=== PATIENT | male | born 1970 | race Two or more races ===

== ENCOUNTER 2020-01-13 15:15 | Outpatient (REF) | payer MEDICAID, SELFPAY ==
[2020-01-13 17:11] LABS: Anion Gap 14 (12-20); Blood Urea Nitrogen 19 mg/dL (9-16); Calcium 8.9 mg/dL (8.4-10.2); Carbon Dioxide 24 mmol/L (22-29); Chloride 107 mmol/L (96-108); Estimated Glomerular Filt Rate > 60; Glucose Random 90 mg/dL (60-115); Potassium 3.8 mmol/l (3.3-5.1); Sodium 141 mmol/L (135-145)
[2020-01-14 07:16] LABS: LDL Cholesterol Direct 111 mg/dL (<100)
== END 2020-01-13 15:16 | disposition home or self-care (01) ==
LOC: HO.HMGCLDS 15:15
PROVIDERS: PCP Internal Medicine; Visit Provider Internal Medicine
DX: E78.9 Disorder of lipoprotein metabolism, unspecified (principal); F41.1 Generalized anxiety disorder; M54.16 Radiculopathy, lumbar region; Z72.0 Tobacco use
CPT/HCPCS: 80048; 83721

== ENCOUNTER 2020-06-11 15:46 | Outpatient (REF) | payer OTHER, SELFPAY ==
--- NOTE | ~2020-06-11 | XR_ITS ---
EXAMINATION: XR ELBOW, LEFT CLINICAL INFORMATION: Pain left elbow COMPARISON: None TECHNIQUE: AP, lateral, and oblique views of the left elbow. FINDINGS: There is no fracture, dislocation, or elbow capsular effusion. Normal bony mineralization. No destructive process or periostitis. No joint narrowing or erosive change. No epicondylar or olecranon spurring. XR/XR elbow LT min 3V IMPRESSION: Normal left elbow.
== END 2020-06-11 15:47 | disposition home or self-care (01) ==
LOC: HO.HMGCX 15:46
PROVIDERS: PCP Internal Medicine; Visit Provider Nurse Practitioner Family
DX: M25.522 Pain in left elbow (principal)
CPT/HCPCS: 73080

== ENCOUNTER → 2020-07-20 09:21 | Outpatient (BNVA) | payer OTHER, SELFPAY | PROVIDERS: PCP Internal Medicine; Visit Provider Orthopaedic Surgery | DX: M70.22 Olecranon bursitis, left elbow (principal); M77.12 Lateral epicondylitis, left elbow; M75.42 Impingement syndrome of left shoulder; E78.5 Hyperlipidemia, unspecified; Z91.81 History of falling; Z88.6 Allergy status to analgesic agent; Z88.0 Allergy status to penicillin; Z88.8 Allergy status to other drugs, medicaments and biological substances; Z91.09 Other allergy status, other than to drugs and biological substances | CPT/HCPCS: 99202 ==

== ENCOUNTER 2020-08-28 12:01 | Outpatient (REF) | payer OTHER, SELFPAY ==
[2020-08-28 14:00] LABS: MANUAL DIFF FLAG NO
[2020-08-28 14:15] LABS: Basophils Absolute Auto 0.1 X10*3/uL (0.0-0.2); Basophils Percent Auto 1.3 % (0-2); Eosinophils Absolute Auto 0.2 X10*3/uL (0.0-0.4); Eosinophils Percent Auto 2.8 % (0-4); Hematocrit 45.2 % (42-52); Hemoglobin 15.1 g/dl (14.0-18.0); Imm Gran Abs Auto 0.02 X10*3/uL (0.00-0.03); Imm Gran Pct Auto 0.2 % (0.0-0.4); Lymphocytes Absolute Auto 3.6 X10*3/uL (1.2-4.9); Lymphocytes Percent Auto 42.3 % (20-40); Mean Corpuscular HGB Conc 33.4 g/dl (31.0-36.0); Mean Corpuscular Hemoglobin 29.8 pg (27.0-33.0); Mean Corpuscular Volume 89.2 fL (80-98); Mean Platelet Volume 10.8 fL (9.4-12.4); Monocytes Absolute Auto 0.8 X10*3/uL (0.1-1.2); Monocytes Percent Auto 9.4 % (2-11); Neutrophils Absolute Auto 3.7 X10*3/uL (2.0-8.3); Platelet Count 290 X10*3/uL (160-400); Red Blood Count 5.07 X10*6/uL (4.60-5.80); White Blood Count 8.5 X10*3/uL (4.8-10.8)
[2020-08-28 14:40] LABS: Alanine Aminotransferase 27 U/L (0-40); Albumin Level 4.5 g/dL (3.5-5.0); Alkaline Phosphatase 113 U/L (39-117); Anion Gap 12 (12-20); Aspartate Amino Transferase 21 U/L (5-37); Bilirubin Total 0.5 mg/dL (0.0-1.0); Blood Urea Nitrogen 15 mg/dL (9-16); Carbon Dioxide 27 mmol/L (22-29); Chloride 107 mmol/L (96-108); Cholesterol 158 mg/dL; Estimated Glomerular Filt Rate > 60; Glucose Fasting 92 mg/dL (60-99); HDL Cholesterol 32 mg/dL; LDL Cholesterol Calculated 83 mg/dl; Potassium 4.5 mmol/L (3.3-5.1); Sodium 141 mmol/L (135-145); Triglycerides 217 mg/dL
[2020-08-29 14:12] LABS: LDL Cholesterol Direct 92 mg/dL (<100)
== END 2020-08-28 12:02 | disposition home or self-care (01) ==
LOC: HO.HMGCLDS 12:01
PROVIDERS: PCP Internal Medicine; Visit Provider Internal Medicine
DX: Z00.01 Encounter for general adult medical examination with abnormal findings (principal); E78.9 Disorder of lipoprotein metabolism, unspecified; M54.16 Radiculopathy, lumbar region; F41.1 Generalized anxiety disorder; Z91.09 Other allergy status, other than to drugs and biological substances; Z72.0 Tobacco use
CPT/HCPCS: 36415; 80053; 80061; 83721; 85025

== ENCOUNTER → 2020-10-03 09:01 | Outpatient (BNVA) | payer OTHER, SELFPAY | PROVIDERS: PCP Internal Medicine; Referring Provider Internal Medicine; Visit Provider Surgery | DX: R10.32 Left lower quadrant pain (principal) | CPT/HCPCS: 99202 ==

== ENCOUNTER 2021-02-25 18:28 | Outpatient (REF) | payer OTHER, SELFPAY ==
[2021-02-25 19:29] LABS: Influenza A PCR NEGATIVE (Negative); Influenza B PCR NEGATIVE (Negative); Resp Syncy Virus RNA Qual PCR NEGATIVE (Negative); SARS COV2 PCR INHOUSE POSITIVE (Negative)
== END 2021-02-25 18:29 | disposition home or self-care (01) ==
LOC: HO.LNP 18:28
PROVIDERS: Visit Provider Physician Assistant
DX: J02.9 Acute pharyngitis, unspecified (principal); B34.9 Viral infection, unspecified; Z20.822 Contact with and (suspected) exposure to COVID-19
CPT/HCPCS: 0241U

== ENCOUNTER 2021-03-11 09:04 | Outpatient (REF) | payer OTHER, SELFPAY ==
[2021-03-11 09:18] LABS: MANUAL DIFF FLAG NO
[2021-03-11 09:24] LABS: Basophils Absolute Auto 0.1 X10*3/uL (0.0-0.2); Basophils Percent Auto 0.7 % (0-2); Eosinophils Absolute Auto 0.2 X10*3/uL (0.0-0.4); Eosinophils Percent Auto 2.3 % (0-4); Hematocrit 42.4 % (42.0-52.0); Hemoglobin 14.3 g/dl (14.0-18.0); Imm Gran Abs Auto 0.03 X10*3/uL (0.00-0.03); Imm Gran Pct Auto 0.3 % (0.0-0.4); Lymphocytes Absolute Auto 3.9 X10*3/uL (1.2-4.9); Lymphocytes Percent Auto 42.5 % (20-40); Mean Corpuscular HGB Conc 33.7 g/dl (31.0-36.0); Mean Corpuscular Volume 89.1 fL (80.0-98.0); Mean Platelet Volume 9.6 fL (9.4-12.4); Monocytes Absolute Auto 0.9 X10*3/uL (0.1-1.2); Monocytes Percent Auto 9.7 % (2-11); Neutrophils Percent Auto 44.5 % (45-73); Platelet Count 318 X10*3/uL (160-400); Red Blood Count 4.76 X10*6/uL (4.60-5.80); Red Cell Distribution Width 12.5 % (11.0-16.0); White Blood Count 9.1 X10*3/uL (4.8-10.8)
[2021-03-11 10:14] LABS: Alanine Aminotransferase 28 U/L (0-40); Albumin Level 4.2 g/dL (3.5-5.0); Alkaline Phosphatase 108 U/L (39-117); Anion Gap 12 (12-20); Aspartate Amino Transferase 18 U/L (5-37); Bilirubin Total 0.6 mg/dL (0.0-1.0); Blood Urea Nitrogen 16 mg/dL (9-16); Calcium 9.5 mg/dL (8.4-10.2); Carbon Dioxide 27 mmol/L (22-29); Chloride 108 mmol/L (96-108); Cholesterol 144 mg/dL; Estimated Glomerular Filt Rate > 60; Glucose Fasting 90 mg/dL (60-99); HDL Cholesterol 27 mg/dL; LDL Cholesterol Calculated 86 mg/dl; Potassium 4.6 mmol/L (3.3-5.1); Sodium 142 mmol/L (135-145); Total Protein 6.8 g/dL (6.5-8.0); Triglycerides 155 mg/dL
== END 2021-03-11 09:05 | disposition home or self-care (01) ==
LOC: HO.LAB 09:04
PROVIDERS: PCP Internal Medicine; Visit Provider Internal Medicine
DX: F41.1 Generalized anxiety disorder (principal); E78.9 Disorder of lipoprotein metabolism, unspecified; M54.16 Radiculopathy, lumbar region; Z72.0 Tobacco use; Z91.09 Other allergy status, other than to drugs and biological substances
CPT/HCPCS: 36415; 80053; 80061; 85025

== ENCOUNTER 2021-08-30 09:29 | Outpatient (REF) | payer OTHER, SELFPAY ==
[2021-08-30 12:00] LABS: MANUAL DIFF FLAG NO
[2021-08-30 12:06] LABS: Basophils Absolute Auto 0.1 X10*3/uL (0.0-0.2); Basophils Percent Auto 1.1 % (0-2); Eosinophils Absolute Auto 0.2 X10*3/uL (0.0-0.4); Hemoglobin 14.4 g/dl (14.0-18.0); Imm Gran Abs Auto 0.02 X10*3/uL (0.00-0.03); Imm Gran Pct Auto 0.3 % (0.0-0.4); Lymphocytes Absolute Auto 4.4 X10*3/uL (1.2-4.9); Lymphocytes Percent Auto 55.5 % (20-40); Mean Corpuscular HGB Conc 33.5 g/dl (31.0-36.0); Mean Corpuscular Volume 89.6 fL (80.0-98.0); Mean Platelet Volume 10.9 fL (9.4-12.4); Monocytes Absolute Auto 0.7 X10*3/uL (0.1-1.2); Monocytes Percent Auto 8.1 % (2-11); Neutrophils Absolute Auto 2.6 x10*3/uL (2.0-8.3); Platelet Count 253 X10*3/uL (160-400); Red Cell Distribution Width 12.8 % (11.0-16.0)
[2021-08-30 12:46] LABS: Alanine Aminotransferase 28 U/L (0-40); Albumin Level 4.5 g/dL (3.5-5.0); Alkaline Phosphatase 123 U/L (39-117); Anion Gap 12 (12-20); Aspartate Amino Transferase 18 U/L (5-37); Blood Urea Nitrogen 18 mg/dL (9-16); Calcium 9.5 mg/dL (8.4-10.2); Carbon Dioxide 25 mmol/L (22-29); Chloride 108 mmol/L (96-108); Estimated Glomerular Filt Rate > 60; Glucose Random 90 mg/dL (60-115); Potassium 4.4 mmol/L (3.3-5.1); Sodium 141 mmol/L (135-145)
[2021-08-30 13:56] LABS: Bilirubin Total 0.3 mg/dL (0.0-1.0)
[2021-09-01 02:42] LABS: LDL Cholesterol Direct 92 mg/dL (<100)
== END 2021-08-30 09:30 | disposition home or self-care (01) ==
LOC: HO.HMGCLDS 09:29
PROVIDERS: PCP Internal Medicine; Visit Provider Internal Medicine
DX: Z00.01 Encounter for general adult medical examination with abnormal findings (principal); E78.9 Disorder of lipoprotein metabolism, unspecified; F41.1 Generalized anxiety disorder; K21.9 Gastro-esophageal reflux disease without esophagitis; M54.16 Radiculopathy, lumbar region; Z72.0 Tobacco use; Z91.09 Other allergy status, other than to drugs and biological substances
CPT/HCPCS: 36415; 80053; 83721; 85025

== ENCOUNTER 2022-03-11 09:17 | Outpatient (REF) | payer OTHER, SELFPAY ==
[2022-03-11 13:53] LABS: Alanine Aminotransferase 24 U/L (0-40); Albumin Level 4.3 g/dL (3.5-5.0); Alkaline Phosphatase 122 U/L (39-117); Anion Gap 9 (12-20); Aspartate Amino Transferase 17 U/L (5-37); Bilirubin Total 0.4 mg/dL (0.0-1.0); Blood Urea Nitrogen 21 mg/dL (9-16); Calcium 9.3 mg/dL (8.4-10.2); Carbon Dioxide 27 mmol/L (22-29); Chloride 111 mmol/L (96-108); Cholesterol 137 mg/dL; Estimated Glomerular Filt Rate > 60; Glucose Fasting 97 mg/dL (60-99); HDL Cholesterol 36 mg/dL; LDL Cholesterol Calculated 77 mg/dl; Potassium 3.7 mmol/L (3.3-5.1); Sodium 143 mmol/L (135-145); Total Protein 6.4 g/dL (6.5-8.0); Triglycerides 122 mg/dL
== END 2022-03-11 09:18 | disposition home or self-care (01) ==
LOC: HO.HMGCLDS 09:17
PROVIDERS: PCP Internal Medicine; Visit Provider Internal Medicine
DX: E78.9 Disorder of lipoprotein metabolism, unspecified (principal)
CPT/HCPCS: 36415; 80053; 80061

== ENCOUNTER 2022-08-27 08:24 | Outpatient (REF) | payer OTHER, SELFPAY | END 2022-08-27 08:25 | disposition home or self-care (01) | LOC: HO.HMGCLDS 08:24 | PROVIDERS: PCP Internal Medicine; Visit Provider Internal Medicine | DX: E78.9 Disorder of lipoprotein metabolism, unspecified (principal); F41.1 Generalized anxiety disorder; M54.16 Radiculopathy, lumbar region; Z91.09 Other allergy status, other than to drugs and biological substances; Z72.0 Tobacco use | CPT/HCPCS: 36415; 80053; 80061; 85025 ==

== ENCOUNTER 2022-09-09 08:39 | Outpatient (AMB) | payer OTHER, SELFPAY ==
[2022-09-09 08:45] VITALS: BP 118/90; PULSE 80; O2SAT 98; BMI 27.7
--- NOTE | 2022-09-09 08:45 | A.OFFPC_ITS ---
Vital Signs 09/09/22 08:45 Height 6 ft 2 in Weight 216 lb BMI 27.7 BP 118/90 H Blood Pressure Location Lt brachial Position Sitting Pulse 80 Pulse Source Pulse Oximeter Pulse Oximetry (%) 98 Oxygen Delivery Method Room Air Intake Visit Reasons: 3 Month follow up anxiety Allergies aspirin Allergy (Unknown, Verified 09/09/22 08:47) facial swelling ibuprofen Allergy (Unknown, Verified 09/09/22 08:47) Unknown NSAIDS (Non-Steroidal Anti-Inflamma Allergy (Unknown, Verified 09/09/22 08:47) Unknown penicillin V Allergy (Unknown, Verified 09/09/22 08:47) facial swelling Medication List - Last Reconciled 09/09/22 by Leeanna Joe MD atorvastatin 20 mg PO DAILY cetirizine 10 mg PO DAILY 90 days fluticasone propionate 50 mcg/actuation (Flonase Allergy Relief) 1 spray intranasal BID 30 days gabapentin 300 mg PO TID montelukast 10 mg PO DAILY 90 days naphazoline-pheniramine 0.025-0.3 % (Naphcon-A) 1 drp ophthalmic (eye) BID-QID PRN 30 days tramadol 50 mg PO Q8H 30 days Tobacco use date assessed: 09/09/22 Dental Screening Dental Screen Date: 09/09/22 Did you have a dental visit in the last 12 months?: No Did you have a dental problem in the last 6 months where you did not have access to dental care?: No Was dental information given to patient?: No HPI 3 Month follow up anxiety HPI Details Patient is a 51-year-old male came in today for regular 3 month follow- up visit. He is stable at this time and offer no new complaints continue to smoke, once again advised patient to stop as soon as possible Patient is on Zyrtec, montelukast and Flonase nasal spray to controlled allergies Patient have a chronic lumbar pain and for that he takes tramadol 50 mg 3 times a day patient is usually seen every 3 month for follow-up due to controlled nature of this medication. He is also on gabapentin 300 mg 3 times a day.? Patient is complying with the treatment plan and it is working for him Omeprazole 20 mg as needed for dyspepsia Lipid control with atorvastatin 20 mg once a day. Follow-up 3 months [facility] Medical History Anxiety, generalized Environmental allergies Left groin pain Lipid disorder Lumbar radiculitis Tobacco abuse Surgical History History of tonsillectomy Family History Father No problems noted. Mother HTN (hypertension) Brother No problems noted. Brother No problems noted. Son No problems noted. Son No problems noted. Daughter No problems noted. Daughter No problems noted. Sister No problems noted. Sister No problems noted. Sister No problems noted. Sister No problems noted. Social History Housing: House Alcohol intake: never Patient Tobacco Use Status: Current everyday Tobacco user Tobacco use type: Cigarette Cigarette Packs Per Day: 1 Years Smoked: 20 e-Cigarette/Vaping Use: Never Used Current occupational status: employed Current occupation: [employer] Cognitive needs: No Hearing needs: No Vision needs: No Questionnaire Thrive Questionnaire Date Thrive assessed: 08/28/20 AUDIT C Alcohol Use Questionnaire (AUDIT-C) 1. How often do you have a drink containing alcohol?: Never 3. How often do you have six or more drinks on one occasion?: Never Total Score: 0 Score Reviewed/Action Taken: Yes MANOJ-7 AMB Questionnaire MANOJ-7 Date MANOJ - 7 assessed: 03/12/21 Source: Developed by Drs. Rafal Mcknight, Astrid Jimenez, Jensen Zamora and colleagues, with an educational urvashi from [employer]. Review of Systems Const Denies chills and Denies fever(s) ENT Denies epistaxis and Denies nasal discharge Card Denies chest pain Resp Denies chest congestion, Denies cough and Denies hemoptysis GI Denies diarrhea and Denies nausea Skin/Breast Denies rash Neuro Reports no additional complaints Psych Reports no additional complaints Endo Reports no additional complaints Physical exam (Primary Care) Vital Signs: Last Vital Signs Pulse 80 09/09/22 08:45 BP 118/90 H 09/09/22 08:45 Pulse Ox 98 09/09/22 08:45 Oxygen Delivery Method Room Air 09/09/22 08:45 BMI result Body Mass Index 27.7 Tobacco/Smoking Status: Tobacco use Status Tobacco use date assessed 09/09/22 09/09/22 08:49 Patient Tobacco Use Status Current everyday Tobacco 09/09/22 08:49 Tobacco use type Cigarette 09/09/22 08:49 e-Cigarette/Vaping Use Never Used 09/09/22 08:49 Thrive Assessment: Date of Thrive Assessment Date Thrive assessed 08/28/20 09/09/22 08:49 Const General: cooperative, comfortable and no acute distress Orientation/consciousness: patient oriented x3 HENMT Head: Yes normocephalic Eyes General: appearance normal, both eyes and all related structures Neck Neck: Yes supple Resp Effort & Inspection: normal respiratory effort, no cough and no stridor Cardio Rhythm: regular rhythm Heart sounds: S1 normal heart sound present and S2 normal heart sound present Skin General skin exam: turgor normal Neuro General: patient oriented x3, tone normal and moves all extremities Extrem Right lower extremity: no edema Left lower extremity: no edema Assessment and Plan Assessment & Plan (1) Lipid disorder: Code(s): E78.9 - Disorder of lipoprotein metabolism, unspecified (2) Anxiety, generalized: Code(s): F41.1 - Generalized anxiety disorder (3) Tobacco abuse: Code(s): Z72.0 - Tobacco use (4) Lumbar radiculitis: Code(s): M54.16 - Radiculopathy, lumbar region (5) Environmental allergies: Code(s): Z91.09 - Other allergy status, other than to drugs and biological substances (6) Chronic GERD: Code(s): K21.9 - Gastro-esophageal reflux disease without esophagitis Plan Patient is a 51-year-old male came in today for regular 3 month follow-up visit. He is stable at this time and offer no new complaints continue to smoke, once again advised patient to stop as soon as possible Patient is on Zyrtec, montelukast and Flonase nasal spray to controlled allergies Patient have a chronic lumbar pain and for that he takes tramadol 50 mg 3 times a day patient is usually seen every 3 month for follow-up due to controlled nature of this medication. He is also on gabapentin 300 mg 3 times a day.? Patient is complying with the treatment plan and it is working for him Omeprazole 20 mg as needed for dyspepsia Lipid control with atorvastatin 20 mg once a day. Follow-up 3 months Medications: Refilled tramadol 50 mg PO Q8H 90 tabs 2RF pain 30 days M54.16 - Radiculopathy, lumbar region gabapentin 300 mg PO TID 90 caps 2RF Coding Level of Care Code Est Pt Level 3 (52081) Diagnoses Lipid disorder E78.9 Anxiety, generalized F41.1 Tobacco abuse Z72.0 Lumbar radiculitis M54.16 Environmental allergies Z91.09 Chronic GERD K21.9
== END 2022-09-09 09:51 | disposition home or self-care (01) ==
PROVIDERS: Visit Provider Internal Medicine
DX: E78.9 Disorder of lipoprotein metabolism, unspecified (principal); Z91.09 Other allergy status, other than to drugs and biological substances; K21.9 Gastro-esophageal reflux disease without esophagitis; F41.1 Generalized anxiety disorder; Z72.0 Tobacco use; M54.16 Radiculopathy, lumbar region
CPT/HCPCS: 99213

== ENCOUNTER 2022-11-11 10:49 | Outpatient (AMB) | payer OTHER, SELFPAY ==
[2022-11-11 10:53] VITALS: BP 136/86; PULSE 88; O2SAT 95; BMI 27.9
--- NOTE | 2022-11-11 10:53 | MHC.PC.OV ---
Vital Signs 11/11/22 10:53 Height 6 ft 2 in Weight 217 lb 4 oz BMI 27.9 BP 136/86 Blood Pressure Location Lt brachial Position Sitting Pulse 88 Pulse Source Pulse Oximeter Pulse Oximetry (%) 95 Oxygen Delivery Method Room Air Intake Visit Reasons: f/u CT Scan Allergies aspirin Allergy (Unknown, Verified 11/11/22 10:53) facial swelling ibuprofen Allergy (Unknown, Verified 11/11/22 10:53) Unknown NSAIDS (Non-Steroidal Anti-Inflamma Allergy (Unknown, Verified 11/11/22 10:53) Unknown penicillin V Allergy (Unknown, Verified 11/11/22 10:53) facial swelling Medication List - Last Reconciled 11/11/22 by Leeanna Joe MD atorvastatin 20 mg PO DAILY cetirizine 10 mg PO DAILY 90 days fluticasone propionate 50 mcg/actuation (Flonase Allergy Relief) 1 spray intranasal BID 30 days gabapentin 300 mg PO TID montelukast 10 mg PO DAILY 90 days naphazoline-pheniramine 0.025-0.3 % (Naphcon-A) 1 drp ophthalmic (eye) BID-QID PRN 30 days tramadol 50 mg PO Q8H 30 days Tobacco use date assessed: 11/11/22 Dental Screening Dental Screen Date: 11/11/22 Did you have a dental visit in the last 12 months?: Yes Did you have a dental problem in the last 6 months where you did not have access to dental care?: No Was dental information given to patient?: Patient has dentist HPI f/u CT Scan HPI Details Patient is a 52-year-old gentleman who went to his dentist and had an x-ray of his teeth done which showed some calcification around his carotid artery. Patient was told to be evaluated and he went to emergency room. [facility] Notes from emergency room reviewed 11/07/2022 where he ended up having a CT scan of his brain Which was unremarkable for any acute findings. Patient does have a history of tobacco abuse, in emergency room he complained of neck pain. See also had a CTA done which showed no significant occlusion or stenosis There was an incidental finding on CTA showing an asymmetric soft tissue attenuation thickening along the right lateral aspect of the oropharynx and larynx Patient is very concerned his LDL is within reasonable control he is taking medication for lipids I have placed a referral for him to see ENT specialist, currently patient has no throat discomfort but he has a history of recurrent pharyngitis. I have also ordered ultrasound of his carotid vessels. COUNT INCLUDES THE [facility] Medical History Left groin pain Environmental allergies Lipid disorder Anxiety, generalized Tobacco abuse Lumbar radiculitis Surgical History History of tonsillectomy Family History Father No problems noted. Mother HTN (hypertension) Brother No problems noted. Brother No problems noted. Son No problems noted. Son No problems noted. Daughter No problems noted. Daughter No problems noted. Sister No problems noted. Sister No problems noted. Sister No problems noted. Sister No problems noted. Social History Housing: House Alcohol intake: never Patient Tobacco Use Status: Current everyday Tobacco user Tobacco use type: Cigarette Cigarette Packs Per Day: 1 Years Smoked: 20 e-Cigarette/Vaping Use: Never Used Current occupational status: employed Current occupation: [employer] Cognitive needs: No Hearing needs: No Vision needs: No Questionnaire PHQ-9 Over the last 2 weeks, how often have you been bothered by any of the following problems? 1. Little interest or pleasure in doing things: not at all 2. Feeling down, depressed, or hopeless: not at all 3. Trouble falling or staying asleep, or sleeping too much: several days 4. Feeling tired or having little energy: more than half the days 5. Poor appetite or overeating: not at all 6. Feeling bad about yourself - or that you are a failure or have let yourself or your family down: not at all 7. Trouble concentrating on things, such as reading the newspaper or watching television: not at all 8. Moving or speaking so slowly that other people could have noticed. Or the opposite - being so fidgety or restless that you have been moving around a lot more than usual: not at all 9. Thoughts that you would be better off or of hurting yourself in some way: not at all Total score: 3 Depression Screening Interpretation: Negative 39734 - PHQ-9 Billing: Yes Source: Developed by Drs. Rafal Mcknight, Jensen Srinivasan and colleagues, with an educational urvashi from [employer]. Thrive Questionnaire Date Thrive assessed: 11/11/22 I am a: Patient What is your living situation today?: I have a steady place to live Within the past 12 months, did the food you bought not last and you didn't have the money to get more?: Often true Within the past 12 months, did you worry whether your food would run out before you got money to buy more?: Never true Do you have trouble paying for medicines?: No Do you have trouble getting transportation to medical appointments?: No Do you have trouble paying your heating and electricity bill?: No Do you have trouble taking care of your child, family member or friend?: No Do you have trouble with day-to-day activities such as bathing, preparing meals, shopping, managing finances, etc.?: No Are you currently unemployed and looking for a job?: Yes Are you interested in more education?: No AUDIT C Alcohol Use Questionnaire (AUDIT-C) 1. How often do you have a drink containing alcohol?: Never 3. How often do you have six or more drinks on one occasion?: Never Total Score: 0 Score Reviewed/Action Taken: Yes MANOJ-7 AMB Questionnaire MANOJ-7 Date MANOJ - 7 assessed: 11/11/22 Feeling nervous, anxious, or on edge: 0 = Not at all Not being able to stop or control worryin = Not at all Worrying too much about different things: 0 = Not at all Trouble relaxin = Not at all Being so restless that it is hard to sit still: 0 = Not at all Becoming easily annoyed or irritable: 0 = Not at all Feeling afraid as if something awful might happen: 0 = Not at all Total MANOJ-7 score (0-4 normal; 5-9 mild; 10-14 moderate; 15-21 severe): 0 Source: Developed by Drs. Rafal Mcknight, Jensen Srinivasan and colleagues, with an educational urvashi from [employer]. MANOJ-7 Assessment Billing MANOJ-7 Assessment Tool: MANOJ-7 Assessment 41773 Review of Systems Const Denies chills and Denies fever(s) ENT Denies epistaxis and Denies nasal discharge Card Denies chest pain Resp Denies chest congestion, Denies cough and Denies hemoptysis GI Denies diarrhea and Denies nausea Skin/Breast Denies rash Neuro Reports no additional complaints Psych Reports no additional complaints Endo Reports no additional complaints Physical exam (Primary Care) Vital Signs: Last Vital Signs Pulse 88 11/11/22 10:53 BP 136/86 11/11/22 10:53 Pulse Ox 95 11/11/22 10:53 Oxygen Delivery Method Room Air 11/11/22 10:53 BMI result Body Mass Index 27.9 Tobacco/Smoking Status: Tobacco use Status Tobacco use date assessed 11/11/22 11/11/22 10:55 Patient Tobacco Use Status Current everyday Tobacco 11/11/22 10:55 Tobacco use type Cigarette 11/11/22 10:55 e-Cigarette/Vaping Use Never Used 11/11/22 10:55 Depression Screening Interpretation: Negative Thrive Assessment: Date of Thrive Assessment Date Thrive assessed 08/28/20 11/11/22 10:55 Const General: cooperative, comfortable and no acute distress Orientation/consciousness: patient oriented x3 HENSC Head: Yes normocephalic Eyes General: appearance normal, both eyes and all related structures Neck Neck: Yes supple Resp Effort & Inspection: normal respiratory effort, no cough and no stridor Cardio Rhythm: regular rhythm Heart sounds: S1 normal heart sound present and S2 normal heart sound present Skin General skin exam: turgor normal Neuro General: patient oriented x3, tone normal and moves all extremities Extrem Right lower extremity: no edema Left lower extremity: no edema Assessment and Plan Assessment & Plan (1) Carotid artery calcification: Code(s): I65.29 - Occlusion and stenosis of unspecified carotid artery Qualifiers: Laterality: bilateral Qualified Code(s): I65.23 - Occlusion and stenosis of bilateral carotid arteries (2) Abnormal CT scan: Code(s): R93.89 - Abnormal findings on diagnostic imaging of other specified body structures (3) Throat disorder: Code(s): J39.2 - Other diseases of pharynx Plan Patient is a 52-year-old gentleman who went to his dentist and had an x-ray of his teeth done which showed some calcification around his carotid artery. Patient was told to be evaluated and he went to emergency room. [facility] Notes from emergency room reviewed 11/07/2022 where he ended up having a CT scan of his brain Which was unremarkable for any acute findings. Patient does have a history of tobacco abuse, in emergency room he complained of neck pain. See also had a CTA done which showed no significant occlusion or stenosis There was an incidental finding on CTA showing an asymmetric soft tissue attenuation thickening along the right lateral aspect of the oropharynx and larynx Patient is very concerned his LDL is within reasonable control he is taking medication for lipids I have placed a referral for him to see ENT specialist, currently patient has no throat discomfort but he has a history of recurrent pharyngitis. I have also ordered ultrasound of his carotid vessels. Orders: Orders US carotid duplex BI Today I65.29 - Occlusion and stenosis of unspecified carotid artery Referrals Ear/Nose/Throat Referral J39.2 - Other diseases of pharynx, R93.89 - Abnormal findings on diagnostic imaging of other specified body structures Coding Level of Care Code Est Pt Level 4 (69041) Diagnoses Calcification of both carotid arteries I65.23 Laterality: [address] scan R93.89 Throat disorder J39.2 Additional Codes MANOJ-7 Assessment Billing - MANOJ-7 Assessment Tool: MANOJ-7 Assessment [id number] ([id number])
== END 2022-11-11 14:20 | disposition home or self-care (01) ==
PROVIDERS: PCP Internal Medicine; Visit Provider Internal Medicine
DX: I65.23 Occlusion and stenosis of bilateral carotid arteries (principal); R93.89 Abnormal findings on diagnostic imaging of other specified body structures; J39.2 Other diseases of pharynx
CPT/HCPCS: 99214

== ENCOUNTER 2023-02-12 10:25 | Outpatient (REF) | payer OTHER, SELFPAY ==
--- NOTE | ~2023-02-12 | US_ITS ---
EXAMINATION: US EXTRACRANIAL CAROTID DUPLEX, BILATERAL CLINICAL INFORMATION: Occlusion and stenosis of carotid artery. COMPARISON: None available. TECHNIQUE: Real-time ultrasound and Doppler techniques (integrating B-mode 2-D vascular images, Doppler spectral analysis and color-flow Doppler imaging) were utilized to interrogate the extracranial carotid arteries, the vertebral arteries and proximal subclavian arteries bilaterally. The degree of stenosis is determined by criteria similar to NASCET. FINDINGS: Right Side: 1. There is no atherosclerotic plaque seen in the bifurcation/proximal ICA region. 2. The common carotid artery PSV proximally is 118 cm/s and distally 124 cm/s. 3. The proximal internal carotid artery velocities are 83 cm/s systolic and 25 cm/s diastolic. 4. The proximal external carotid artery PSV is 167 cm/s. 5. The vertebral artery shows antegrade flow. 6. The subclavian artery waveforms are normal. Left Side: 1. There is no atherosclerotic plaque seen in the bifurcation/proximal ICA region. 2. The common carotid artery PSV proximally is 132 cm/s and distally 90 cm/s. 3. The proximal internal carotid artery velocities are 70 cm/s systolic and 23 cm/s diastolic. 4. The proximal external carotid artery PSV is 120 cm/s. 5. The vertebral artery shows antegrade flow. 6. The subclavian artery waveforms are normal. US/US carotid duplex BI IMPRESSION: 1. RIGHT: Normal right internal carotid artery without atherosclerotic plaque or hemodynamically significant stenosis. 2. LEFT: Normal left internal carotid artery without atherosclerotic plaque or hemodynamically significant stenosis.
== END 2023-02-12 10:26 | disposition home or self-care (01) ==
LOC: HO.US 10:25
PROVIDERS: PCP Internal Medicine; Visit Provider Internal Medicine
DX: I65.29 Occlusion and stenosis of unspecified carotid artery (principal)
CPT/HCPCS: 93880

== ENCOUNTER 2023-03-11 10:38 | Outpatient (AMB) | payer OTHER, SELFPAY ==
[2023-03-11 10:49] VITALS: BP 132/84; PULSE 79; O2SAT 97; BMI 27.3
--- NOTE | 2023-03-11 10:49 | A.OFFPC_ITS ---
Vital Signs 03/11/23 10:49 Height 6 ft 2 in Weight 212 lb 6 oz BMI 27.3 BP 132/84 Blood Pressure Location Lt brachial Position Sitting Pulse 79 Pulse Source Pulse Oximeter Pulse Oximetry (%) 97 Oxygen Delivery Method Room Air Intake Visit Reasons: Med review Allergies aspirin Allergy (Unknown, Verified 03/11/23 10:50) facial swelling ibuprofen Allergy (Unknown, Verified 03/11/23 10:50) Unknown NSAIDS (Non-Steroidal Anti-Inflamma Allergy (Unknown, Verified 03/11/23 10:50) Unknown penicillin V Allergy (Unknown, Verified 03/11/23 10:50) facial swelling Medication List - Last Reconciled 03/11/23 by Leeanna Joe MD atorvastatin 20 mg PO DAILY cetirizine 10 mg PO DAILY 90 days fluticasone propionate 50 mcg/actuation (Flonase Allergy Relief) 1 spray intranasal BID 30 days gabapentin 300 mg PO TID montelukast 10 mg PO DAILY 90 days naphazoline-pheniramine 0.025-0.3 % (Naphcon-A) 1 drp ophthalmic (eye) BID-QID PRN 30 days tramadol 50 mg PO Q8H 30 days Tobacco use date assessed: 03/11/23 Dental Screening Dental Screen Date: 03/11/23 Did you have a dental visit in the last 12 months?: Yes Did you have a dental problem in the last 6 months where you did not have access to dental care?: No Was dental information given to patient?: Patient has dentist HPI Med review HPI Details Dr. Lombardi, ENT specialist, report reviewed, patient had incidental finding on CT angio of neck showing right [place] tonsil, his left tonsil and left lingual tonsil was removed Pathology was benign Ultrasound carotid artery was normal continue to smoke, once again advised patient to stop as soon as possible, he is smoking half a pack per day Patient is on Zyrtec, montelukast and Flonase nasal spray to controlled allergies Patient have a chronic lumbar pain and for that he takes tramadol 50 mg 3 times a day patient is usually seen every 3 month for follow-up due to controlled nature of this medication. He is also on gabapentin 300 mg 3 times a day.? Patient is complying with the treatment plan and it is working for him Omeprazole 20 mg as needed for dyspepsia Lipid control with atorvastatin 20 mg once a day. Due for labs Follow-up 3 months [facility] Medical History Left groin pain Environmental allergies Lipid disorder Anxiety, generalized Tobacco abuse Lumbar radiculitis Surgical History History of tonsillectomy Family History Father No problems noted. Mother HTN (hypertension) Brother No problems noted. Brother No problems noted. Son No problems noted. Son No problems noted. Daughter No problems noted. Daughter No problems noted. Sister No problems noted. Sister No problems noted. Sister No problems noted. Sister No problems noted. Social History Housing: House Alcohol intake: never Patient Tobacco Use Status: Current everyday Tobacco user Tobacco use type: Cigarette Cigarette Packs Per Day: 1 Years Smoked: 20 e-Cigarette/Vaping Use: Never Used service: No Current occupational status: employed Current occupation: [employer] Cognitive needs: No Hearing needs: No Vision needs: No Questionnaire Thrive Questionnaire Date Thrive assessed: 11/11/22 AUDIT C Alcohol Use Questionnaire (AUDIT-C) 1. How often do you have a drink containing alcohol?: Never 3. How often do you have six or more drinks on one occasion?: Never Total Score: 0 Score Reviewed/Action Taken: Yes MANOJ-7 AMB Questionnaire MANOJ-7 Date MANOJ - 7 assessed: 11/11/22 Source: Developed by Drs. Rafal Mcknight, Astrid Jimenez, Jensen Zamora and colleagues, with an educational urvashi from [employer]. Review of Systems Const Denies chills and Denies fever(s) ENT Denies epistaxis and Denies nasal discharge Card Denies chest pain Resp Denies chest congestion, Denies cough and Denies hemoptysis GI Denies diarrhea and Denies nausea Skin/Breast Denies rash Neuro Reports no additional complaints Psych Reports no additional complaints Endo Reports no additional complaints Physical exam (Primary Care) Vital Signs: Last Vital Signs Pulse 79 03/11/23 10:49 BP 132/84 03/11/23 10:49 Pulse Ox 97 03/11/23 10:49 Oxygen Delivery Method Room Air 03/11/23 10:49 BMI result Body Mass Index 27.3 Tobacco/Smoking Status: Tobacco use Status Tobacco use date assessed 03/11/23 03/11/23 10:51 Patient Tobacco Use Status Current everyday Tobacco 03/11/23 10:51 Tobacco use type Cigarette 03/11/23 10:51 e-Cigarette/Vaping Use Never Used 03/11/23 10:51 Are you ready to quit: No Relapse Prevention: discussed the importance of a supportive environment and discussed dietary, exercise and/or lifestyle changes CPT code: 26144 - 4-10 Minutes Thrive Assessment: Date of Thrive Assessment Date Thrive assessed 11/11/22 03/11/23 10:51 Const General: cooperative, comfortable and no acute distress Orientation/consciousness: patient oriented x3 HENMT Head: Yes normocephalic Eyes General: appearance normal, both eyes and all related structures Neck Neck: Yes supple Resp Effort & Inspection: normal respiratory effort, no cough and no stridor Cardio Rhythm: regular rhythm Heart sounds: S1 normal heart sound present and S2 normal heart sound present Skin General skin exam: turgor normal Neuro General: patient oriented x3, tone normal and moves all extremities Extrem Right lower extremity: no edema Left lower extremity: no edema Assessment and Plan Assessment & Plan (1) Lipid disorder: Code(s): E78.9 - Disorder of lipoprotein metabolism, unspecified (2) Anxiety, generalized: Code(s): F41.1 - Generalized anxiety disorder (3) Lumbar radiculitis: Code(s): M54.16 - Radiculopathy, lumbar region (4) Environmental allergies: Code(s): Z91.09 - Other allergy status, other than to drugs and biological substances (5) Chronic GERD: Code(s): K21.9 - Gastro-esophageal reflux disease without esophagitis (6) Nicotine dependence: Code(s): F17.200 - Nicotine dependence, unspecified, uncomplicated Qualifiers: Nicotine product type: cigarettes Substance use status: uncomplicated Qualified Code(s): F17.210 - Nicotine dependence, cigarettes, uncomplicated Plan Dr. Lombardi, ENT specialist, report reviewed, patient had incidental finding on CT angio of neck showing right [place] tonsil, his left tonsil and left lingual tonsil was removed Pathology was benign Ultrasound carotid artery was normal continue to smoke, once again advised patient to stop as soon as possible, he is smoking half a pack per day Patient is on Zyrtec, montelukast and Flonase nasal spray to controlled allergies Patient have a chronic lumbar pain and for that he takes tramadol 50 mg 3 times a day patient is usually seen every 3 month for follow-up due to controlled nature of this medication. He is also on gabapentin 300 mg 3 times a day.? Patient is complying with the treatment plan and it is working for him Omeprazole 20 mg as needed for dyspepsia Lipid control with atorvastatin 20 mg once a day. Due for labs Follow-up 3 months Orders: Orders Comprehensive Met. Panel Today E78.9 - Disorder of lipoprotein metabolism, unspecified LDL Cholesterol Direct Today E78.9 - Disorder of lipoprotein metabolism, unspecified Medications: Refilled tramadol 50 mg PO Q8H 90 tabs 1RF pain 30 days M54.16 - Radiculopathy, lumbar region montelukast 10 mg PO DAILY 90 tabs 3RF 90 days cetirizine 10 mg PO DAILY 90 tabs 3RF 90 days Z91.09 - Other allergy status, other than to drugs and biological substances gabapentin 300 mg PO TID 90 caps 2RF fluticasone propionate 50 mcg/actuation (Flonase Allergy Relief) administer into each nostril 1 spray intranasal BID 16 grams 5RF 30 days atorvastatin 20 mg PO DAILY 90 tabs 3RF Coding Level of Care Code Est Pt Level 4 (65483) Diagnoses Lipid disorder E78.9 Anxiety, generalized F41.1 Lumbar radiculitis M54.16 Environmental allergies Z91.09 Chronic GERD K21.9 Cigarette nicotine dependence without complication F17.210 Nicotine product type: cigarettes Substance use status: uncomplicated Additional Codes Vital Signs *Quality* - CPT code: 52036 - 4-10 Minutes ([id number])
== END 2023-03-11 14:55 | disposition home or self-care (01) ==
PROVIDERS: PCP Internal Medicine; Visit Provider Internal Medicine
DX: E78.9 Disorder of lipoprotein metabolism, unspecified (principal); F41.1 Generalized anxiety disorder; M54.16 Radiculopathy, lumbar region; F17.210 Nicotine dependence, cigarettes, uncomplicated; Z91.09 Other allergy status, other than to drugs and biological substances; K21.9 Gastro-esophageal reflux disease without esophagitis
CPT/HCPCS: 99214; 99406

== ENCOUNTER 2023-04-21 10:42 | Outpatient (REF) | payer OTHER, SELFPAY ==
[2023-04-21 13:35] LABS: Alanine Aminotransferase 24 U/L (0-40); Albumin Level 4.4 g/dL (3.5-5.0); Alkaline Phosphatase 107 U/L (39-117); Anion Gap 10 (12-20); Aspartate Amino Transferase 17 U/L (5-37); Bilirubin Total 0.4 mg/dL (0.0-1.0); Blood Urea Nitrogen 17 mg/dL (9-16); Calcium 9.8 mg/dL (8.4-10.2); Carbon Dioxide 26 mmol/L (22-29); Chloride 109 mmol/L (96-108); Estimated Glomerular Filt Rate > 60; Glucose Random 95 mg/dL (60-115); Potassium 3.9 mmol/L (3.3-5.1); Sodium 141 mmol/L (135-145); Total Protein 7.2 g/dL (6.5-8.0)
[2023-04-23 06:44] LABS: LDL Cholesterol Direct 94 mg/dL (<100)
== END 2023-04-21 10:43 | disposition home or self-care (01) ==
LOC: HO.HMGCLDS 10:42
PROVIDERS: PCP Internal Medicine; Visit Provider Internal Medicine
DX: E78.9 Disorder of lipoprotein metabolism, unspecified (principal)
CPT/HCPCS: 36415; 80053; 83721

== ENCOUNTER 2023-05-27 15:27 | Outpatient (AMB) | payer OTHER, SELFPAY ==
[2023-05-27 15:33] VITALS: BP 134/102; PULSE 85; O2SAT 98; BMI 27.5
--- NOTE | 2023-05-27 15:33 | A.OFFPC_ITS ---
Vital Signs 05/27/23 15:33 Height 6 ft 2 in Weight 214 lb BMI 27.5 BP 134/102 H Blood Pressure Location Lt brachial Position Sitting Pulse 85 Pulse Source Pulse Oximeter Pulse Oximetry (%) 98 Oxygen Delivery Method Room Air Intake Visit Reasons: 11 week follow up Allergies aspirin Allergy (Unknown, Verified 05/27/23 15:36) facial swelling ibuprofen Allergy (Unknown, Verified 05/27/23 15:36) Unknown NSAIDS (Non-Steroidal Anti-Inflamma Allergy (Unknown, Verified 05/27/23 15:36) Unknown penicillin V Allergy (Unknown, Verified 05/27/23 15:36) facial swelling Medication List - Last Reconciled 05/27/23 by Leeanna Joe MD atorvastatin 20 mg PO DAILY cetirizine 10 mg PO DAILY 90 days fluticasone propionate 50 mcg/actuation (Flonase Allergy Relief) 1 spray intranasal BID 30 days gabapentin 300 mg PO TID montelukast 10 mg PO DAILY 90 days tramadol 50 mg PO Q8H 30 days Tobacco use date assessed: 05/27/23 Dental Screening Dental Screen Date: 05/27/23 Did you have a dental visit in the last 12 months?: Yes Did you have a dental problem in the last 6 months where you did not have access to dental care?: No Was dental information given to patient?: Patient has dentist HPI 11 week follow up HPI Details Patient is a 52-year-old gentleman came in today for his medication refill continue to smoke, once again advised patient to stop as soon as possible, he is smoking half a pack per day Patient is on Zyrtec, montelukast and Flonase nasal spray to controlled allergies Patient have a chronic lumbar pain and for that he takes tramadol 50 mg 3 times a day patient is usually seen every 3 month for follow-up due to controlled nature of this medication. He is also on gabapentin 300 mg 3 times a day.? Patient is complying with the treatment plan and it is working for him Omeprazole 20 mg as needed for dyspepsia Lipid control with atorvastatin 20 mg once a day. Labs were done recently reviewed with the patient Follow-up 3 months [facility] Medical History Left groin pain Environmental allergies Lipid disorder Anxiety, generalized Tobacco abuse Lumbar radiculitis Surgical History History of tonsillectomy Family History Father No problems noted. Mother HTN (hypertension) Brother No problems noted. Brother No problems noted. Son No problems noted. Son No problems noted. Daughter No problems noted. Daughter No problems noted. Sister No problems noted. Sister No problems noted. Sister No problems noted. Sister No problems noted. Social History Housing: House Alcohol intake: never Patient Tobacco Use Status: Current everyday Tobacco user Tobacco use type: Cigarette Cigarette Packs Per Day: 1 Years Smoked: 20 e-Cigarette/Vaping Use: Never Used service: No Current occupational status: employed Current occupation: [employer] Cognitive needs: No Hearing needs: No Vision needs: No Questionnaire Thrive Questionnaire Date Thrive assessed: 11/11/22 AUDIT C Alcohol Use Questionnaire (AUDIT-C) 1. How often do you have a drink containing alcohol?: Never 3. How often do you have six or more drinks on one occasion?: Never Total Score: 0 Score Reviewed/Action Taken: Yes MANOJ-7 AMB Questionnaire MANOJ-7 Date MANOJ - 7 assessed: 11/11/22 Source: Developed by Drs. Rafal Mcknight, Astrid Jimenez, Jensen Zamora and colleagues, with an educational urvashi from [employer]. Review of Systems Const Denies chills and Denies fever(s) ENT Denies epistaxis and Denies nasal discharge Card Denies chest pain Resp Denies chest congestion, Denies cough and Denies hemoptysis GI Denies diarrhea and Denies nausea Skin/Breast Denies rash Neuro Reports no additional complaints Psych Reports no additional complaints Endo Reports no additional complaints Physical exam (Primary Care) Vital Signs: Last Vital Signs Pulse 85 05/27/23 15:33 BP 134/102 H 05/27/23 15:33 Pulse Ox 98 05/27/23 15:33 Oxygen Delivery Method Room Air 05/27/23 15:33 BMI result Body Mass Index 27.5 Tobacco/Smoking Status: Tobacco use Status Tobacco use date assessed 05/27/23 05/27/23 15:36 Patient Tobacco Use Status Current everyday Tobacco 05/27/23 15:36 Tobacco use type Cigarette 05/27/23 15:36 e-Cigarette/Vaping Use Never Used 05/27/23 15:36 Thrive Assessment: Date of Thrive Assessment Date Thrive assessed 11/11/22 05/27/23 15:36 Const General: cooperative, comfortable and no acute distress Orientation/consciousness: patient oriented x3 HENMT Head: Yes normocephalic Eyes General: appearance normal, both eyes and all related structures Neck Neck: Yes supple Resp Effort & Inspection: normal respiratory effort, no cough and no stridor Cardio Rhythm: regular rhythm Heart sounds: S1 normal heart sound present and S2 normal heart sound present Skin General skin exam: turgor normal Neuro General: patient oriented x3, tone normal and moves all extremities Extrem Right lower extremity: no edema Left lower extremity: no edema Assessment and Plan Assessment & Plan (1) Lipid disorder: Code(s): E78.9 - Disorder of lipoprotein metabolism, unspecified (2) Anxiety, generalized: Code(s): F41.1 - Generalized anxiety disorder (3) Lumbar radiculitis: Code(s): M54.16 - Radiculopathy, lumbar region (4) Environmental allergies: Code(s): Z91.09 - Other allergy status, other than to drugs and biological substances (5) Chronic GERD: Code(s): K21.9 - Gastro-esophageal reflux disease without esophagitis (6) Nicotine dependence: Code(s): F17.200 - Nicotine dependence, unspecified, uncomplicated Qualifiers: Nicotine product type: cigarettes Substance use status: uncomplicated Qualified Code(s): F17.210 - Nicotine dependence, cigarettes, uncomplicated Plan Patient is a 52-year-old gentleman came in today for his medication refill continue to smoke, once again advised patient to stop as soon as possible, he is smoking half a pack per day Patient is on Zyrtec, montelukast and Flonase nasal spray to controlled allergies Patient have a chronic lumbar pain and for that he takes tramadol 50 mg 3 times a day patient is usually seen every 3 month for follow-up due to controlled nature of this medication. He is also on gabapentin 300 mg 3 times a day.? Patient is complying with the treatment plan and it is working for him Omeprazole 20 mg as needed for dyspepsia Lipid control with atorvastatin 20 mg once a day. Labs were done recently reviewed with the patient Follow-up 3 months Medications: Changed From tramadol 50 mg PO Q8H 30 days 90 tabs 1RF pain M54.16 - Radiculopathy, lumbar region To tramadol 50 mg PO Q8H 90 days 270 tabs 0RF pain M54.16 - Radiculopathy, lumbar region Coding Level of Care Code Est Pt Level 4 (24883) Diagnoses Lipid disorder E78.9 Anxiety, generalized F41.1 Lumbar radiculitis M54.16 Environmental allergies Z91.09 Chronic GERD K21.9 Cigarette nicotine dependence without complication F17.210 Nicotine product type: cigarettes Substance use status: uncomplicated
== END 2023-05-27 15:51 | disposition home or self-care (01) ==
PROVIDERS: PCP Internal Medicine; Visit Provider Internal Medicine
DX: E78.9 Disorder of lipoprotein metabolism, unspecified (principal); F41.1 Generalized anxiety disorder; M54.16 Radiculopathy, lumbar region; Z91.09 Other allergy status, other than to drugs and biological substances; K21.9 Gastro-esophageal reflux disease without esophagitis; F17.210 Nicotine dependence, cigarettes, uncomplicated
CPT/HCPCS: 99214

== ENCOUNTER 2023-08-21 07:08 | Outpatient (AMB) | payer OTHER, SELFPAY ==
--- NOTE | 2023-08-21 07:33 | A.OFFPC_ITS ---
Vital Signs 08/21/23 07:51 Height 6 ft 2 in Weight 215 lb BMI 27.6 BP 140/90 H Blood Pressure Location Rt brachial Position Sitting Pulse 75 Pulse Source Pulse Oximeter Pulse Oximetry (%) 94 Oxygen Delivery Method Room Air Intake Visit Reasons: 3M F/U per [place] Allergies aspirin Allergy (Unknown, Verified 08/21/23 07:50) facial swelling ibuprofen Allergy (Unknown, Verified 08/21/23 07:50) Unknown NSAIDS (Non-Steroidal Anti-Inflamma Allergy (Unknown, Verified 08/21/23 07:50) Unknown penicillin V Allergy (Unknown, Verified 08/21/23 07:50) facial swelling Medication List - Last Reconciled 08/21/23 by Leeanna Joe MD atorvastatin 20 mg PO DAILY cetirizine 10 mg PO DAILY 90 days fluticasone propionate 50 mcg/actuation (Flonase Allergy Relief) 1 spray intranasal BID 30 days gabapentin 300 mg PO TID montelukast 10 mg PO DAILY 90 days tramadol 50 mg PO Q8H 90 days Tobacco use date assessed: 08/21/23 Dental Screening Dental Screen Date: 08/21/23 Did you have a dental visit in the last 12 months?: Yes Did you have a dental problem in the last 6 months where you did not have access to dental care?: Yes Was dental information given to patient?: Patient has dentist HPI 3M F/U per [place] HPI Details Patient is a 52-year-old gentleman came in today for his regular three- month follow-up appointment I see that his blood pressure is 140/90, patient says that he just had coffee before he came in Instructed patient to start monitoring his blood pressure at home and keep a log, last visit it was 134/102 Also observe no salt diet Labs were done March of this year, new set of lab order placed to be done before next visit continue to smoke, once again advised patient to stop as soon as possible, he is smoking half a pack per day Patient is on Zyrtec, montelukast and Flonase nasal spray to controlled allergies Patient have a chronic lumbar pain and for that he takes tramadol 50 mg 3 times a day patient is usually seen every 3 month for follow-up due to controlled nature of this medication. He is also on gabapentin 300 mg 3 times a day.? Patient is complying with the treatment plan and it is working for him Omeprazole 20 mg as needed for dyspepsia Lipid control with atorvastatin 20 mg once a day. Follow-up 3 months [facility] Medical History Left groin pain Environmental allergies Lipid disorder Anxiety, generalized Tobacco abuse Lumbar radiculitis Surgical History History of tonsillectomy Family History Father No problems noted. Mother HTN (hypertension) Brother No problems noted. Brother No problems noted. Son No problems noted. Son No problems noted. Daughter No problems noted. Daughter No problems noted. Sister No problems noted. Sister No problems noted. Sister No problems noted. Sister No problems noted. Social History Housing: House Alcohol intake: never Patient Tobacco Use Status: Current everyday Tobacco user Tobacco use type: Cigarette Cigarette Packs Per Day: 1 Years Smoked: 20 e-Cigarette/Vaping Use: Never Used service: No Current occupational status: employed Current occupation: [employer] Cognitive needs: No Hearing needs: No Vision needs: No Questionnaire Thrive Questionnaire Date Thrive assessed: 11/11/22 MANOJ-7 AMB Questionnaire MANOJ-7 Date MANOJ - 7 assessed: 11/11/22 Source: Developed by Drs. Rafal Mcknight, Astrid Jimenez, Jensen Zamora and colleagues, with an educational urvashi from [employer]. Review of Systems Const Denies chills and Denies fever(s) ENT Denies epistaxis and Denies nasal discharge Card Denies chest pain Resp Denies chest congestion, Denies cough and Denies hemoptysis GI Denies diarrhea and Denies nausea Skin/Breast Denies rash Neuro Reports no additional complaints Psych Reports no additional complaints Endo Reports no additional complaints Physical exam (Primary Care) Vital Signs: Last Vital Signs Pulse 75 08/21/23 07:51 BP 140/90 H 08/21/23 07:51 Pulse Ox 94 08/21/23 07:51 Oxygen Delivery Method Room Air 08/21/23 07:51 BMI result Body Mass Index 27.6 Tobacco/Smoking Status: Tobacco use Status Tobacco use date assessed 08/21/23 08/21/23 07:50 Patient Tobacco Use Status Current everyday Tobacco 08/21/23 07:36 Tobacco use type Cigarette 08/21/23 07:36 e-Cigarette/Vaping Use Never Used 08/21/23 07:36 Thrive Assessment: Date of Thrive Assessment Date Thrive assessed 11/11/22 08/21/23 07:36 Const General: cooperative, comfortable and no acute distress Orientation/consciousness: patient oriented x3 HENMT Head: Yes normocephalic Eyes General: appearance normal, both eyes and all related structures Neck Neck: Yes supple Resp Effort & Inspection: normal respiratory effort, no cough and no stridor Cardio Rhythm: regular rhythm Heart sounds: S1 normal heart sound present and S2 normal heart sound present Skin General skin exam: turgor normal Neuro General: patient oriented x3, tone normal and moves all extremities Extrem Right lower extremity: no edema Left lower extremity: no edema Assessment and Plan Assessment & Plan (1) Lumbar radiculitis: Code(s): M54.16 - Radiculopathy, lumbar region (2) Lipid disorder: Code(s): E78.9 - Disorder of lipoprotein metabolism, unspecified (3) Anxiety, generalized: Code(s): F41.1 - Generalized anxiety disorder (4) Environmental allergies: Code(s): Z91.09 - Other allergy status, other than to drugs and biological substances (5) Chronic GERD: Code(s): K21.9 - Gastro-esophageal reflux disease without esophagitis (6) Nicotine dependence: Code(s): F17.200 - Nicotine dependence, unspecified, uncomplicated Qualifiers: Nicotine product type: cigarettes Substance use status: uncomplicated Qualified Code(s): F17.210 - Nicotine dependence, cigarettes, uncomplicated (7) Elevated blood pressure reading: Code(s): R03.0 - Elevated blood-pressure reading, without diagnosis of hypertension Plan Patient is a 52-year-old gentleman came in today for his regular three-month follow-up appointment I see that his blood pressure is 140/90, patient says that he just had coffee before he came in Instructed patient to start monitoring his blood pressure at home and keep a log, last visit it was 134/102 Also observe no salt diet Labs were done March of this year, new set of lab order placed to be done before next visit continue to smoke, once again advised patient to stop as soon as possible, he is smoking half a pack per day Patient is on Zyrtec, montelukast and Flonase nasal spray to controlled allergies Patient have a chronic lumbar pain and for that he takes tramadol 50 mg 3 times a day patient is usually seen every 3 month for follow-up due to controlled nature of this medication. He is also on gabapentin 300 mg 3 times a day.? Patient is complying with the treatment plan and it is working for him Omeprazole 20 mg as needed for dyspepsia Lipid control with atorvastatin 20 mg once a day. Follow-up 3 months Orders: Orders Comprehensive [place]. Panel Fast 10 Weeks E78.9 - Disorder of lipoprotein metabolism, unspecified, F17.210 - Nicotine dependence, cigarettes, uncomplicated, F41.1 - Generalized anxiety disorder, K21.9 - Gastro-esophageal reflux disease without esophagitis, R03.0 - Elevated blood-pressure reading, without diagnosis of hypertension Lipid Panel 10 Weeks E78.9 - Disorder of lipoprotein metabolism, unspecified, F17.210 - Nicotine dependence, cigarettes, uncomplicated, F41.1 - Generalized anxiety disorder, K21.9 - Gastro-esophageal reflux disease without esophagitis, R03.0 - Elevated blood-pressure reading, without diagnosis of hypertension Complete Blood Count Auto Diff 10 Weeks E78.9 - Disorder of lipoprotein metabolism, unspecified, F17.210 - Nicotine dependence, cigarettes, uncomplicated, F41.1 - Generalized anxiety disorder, K21.9 - Gastro-esophageal reflux disease without esophagitis, R03.0 - Elevated blood-pressure reading, without diagnosis of hypertension Vitamin D 25-OH (D2 and D3) 10 Weeks E78.9 - Disorder of lipoprotein metabolism, unspecified, F17.210 - Nicotine dependence, cigarettes, uncomplicated, F41.1 - Generalized anxiety disorder, K21.9 - Gastro-esophageal reflux disease without esophagitis, R03.0 - Elevated blood-pressure reading, without diagnosis of hypertension Medications: Changed From tramadol 50 mg PO Q8H 90 days 270 tabs 0RF pain M54.16 - Radiculopathy, lumbar region To tramadol 50 mg PO Q8H 90 tabs 2RF pain 30 days M54.16 - Radiculopathy, lumbar region Refilled atorvastatin 20 mg PO DAILY 90 tabs 3RF fluticasone propionate 50 mcg/actuation (Flonase Allergy Relief) administer into each nostril 1 spray intranasal BID 16 grams 5RF 30 days gabapentin 300 mg PO TID 90 caps 2RF montelukast 10 mg PO DAILY 90 tabs 3RF 90 days cetirizine 10 mg PO DAILY 90 tabs 3RF 90 days Z91.09 - Other allergy status, other than to drugs and biological substances Coding Level of Care Code Est Pt Level 4 (84587) Diagnoses Lumbar radiculitis M54.16 Lipid disorder E78.9 Anxiety, generalized F41.1 Environmental allergies Z91.09 Chronic GERD K21.9 Cigarette nicotine dependence without complication F17.210 Nicotine product type: cigarettes Substance use status: uncomplicated Elevated blood pressure reading R03.0
[2023-08-21 07:51] VITALS: BP 140/90; PULSE 75; O2SAT 94; BMI 27.6
== END 2023-08-21 08:06 | disposition home or self-care (01) ==
PROVIDERS: PCP Internal Medicine; Visit Provider Internal Medicine
DX: M54.16 Radiculopathy, lumbar region (principal); E78.9 Disorder of lipoprotein metabolism, unspecified; F41.1 Generalized anxiety disorder; Z91.09 Other allergy status, other than to drugs and biological substances; K21.9 Gastro-esophageal reflux disease without esophagitis; F17.210 Nicotine dependence, cigarettes, uncomplicated; R03.0 Elevated blood-pressure reading, without diagnosis of hypertension
CPT/HCPCS: 99214

== ENCOUNTER → 2023-09-17 13:43 | Outpatient (AMB) | payer OTHER, SELFPAY ==
--- NOTE | 2023-09-17 13:59 | AM.OFFWIN_ITS ---
Intake Vital Signs 09/17/23 14:03 Height 6 ft 2 in Weight 211 lb BMI 27.1 BP 110/82 Blood Pressure Location Rt brachial Position Sitting Pulse 94 Pulse Source Pulse Oximeter Temp 98.7 F Temp Source Oral Pulse Oximetry (%) 97 Oxygen Delivery Method Room Air Intake Visit Reasons: est/ cough/ headache/ feeling hot and cold Intake Note: pt here c/o cough, headache, hot and cold, chest pain. Started last week Patient Tobacco Use Status: Current everyday Tobacco user Allergies aspirin Allergy (Unknown, Verified 09/17/23 14:03) facial swelling ibuprofen Allergy (Unknown, Verified 09/17/23 14:03) Unknown NSAIDS (Non-Steroidal Anti-Inflamma Allergy (Unknown, Verified 09/17/23 14:03) Unknown penicillin V Allergy (Unknown, Verified 09/17/23 14:03) facial swelling Do you need a note to return to daycare/school/sports/work: Yes HPI HPI Comments History of Present Illness Details Patient is a 52-year-old male complaining of 7 days of a dry cough, headache, body aches, sinus pain on the right side and right-sided ear pain. He states he has some chest pain bilaterally. He also has feelings of feeling hot and then cold but denies actually taking his temperature. He denies any shortness of breath or wheezing. He has tried taking Tylenol and tramadol with no relief. 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 Mother HTN (hypertension) Brother No problems noted. Brother No problems noted. Son No problems noted. Son No problems noted. Daughter No problems noted. Daughter No problems noted. Sister No problems noted. Sister No problems noted. Sister No problems noted. Sister No problems noted. Social History Housing: House Alcohol intake: never Patient Tobacco Use Status: Current everyday Tobacco user Tobacco use type: Cigarette Cigarette Packs Per Day: 1 Years Smoked: 20 e-Cigarette/Vaping Use: Never Used service: No Current occupational status: employed Current occupation: [employer] Cognitive needs: No Hearing needs: No Vision needs: No Review of Systems Const All systems reviewed & are unremarkable except as noted in HPI and below Physical Exam Vital Signs: Last Vital Signs Temp 98.7 F 09/17/23 14:03 Pulse 94 09/17/23 14:03 BP 110/82 09/17/23 14:03 Pulse Ox 97 09/17/23 14:03 Oxygen Delivery Method Room Air 09/17/23 14:03 BMI result Body Mass Index 27.1 Const General: cooperative, healthy appearing, comfortable and no acute distress Orientation/consciousness: patient oriented x3 Limitations: no limitations HEENT Head: Yes normal to inspection Ears: hearing grossly normal bilaterally, external ears normal, TM normal on the left and TM abnormal bulging, dull, wth effusion, erythematous and with loss of landmarks General nose exam: Normal external nose present, Normal nares present and No nasal discharge present Face and sinus: Yes normal facial exam and Yes Facial tenderness on exam of face and sinuses Mouth: Normal oral and palatal mucosa present and moist mucous membranes Throat: Yes tonsils normal, Yes uvula midline and Yes posterior oropharynx abnormal (Erythema) Eyes General: appearance normal, both eyes and all related structures Neck Neck: Yes normal visual inspection Resp Effort & Inspection: normal respiratory effort, able to speak in complete sentences, Actively coughing, no respiratory distress, not tachypneic, no tripod positioning and no use of accessory muscles Auscultation: clear to auscultation bilaterally Cardio Rate: regular rate Rhythm: regular rhythm Heart sounds: normal S1 and S2 Skin General skin exam: no rashes or lesions noted Neuro General: patient oriented x3 Extrem General: Yes normal to inspection and Yes no clubbing, cyanosis or edema Assessment & Plan Assessment & Plan (1) Otitis media: Code(s): H66.90 - Otitis media, unspecified, unspecified ear Qualifiers: Chronicity: acute Laterality: right Otitis media type: suppurative Recurrence: non-recurrent Spontaneous tympanic membrane rupture: without spontaneous rupture Qualified Code(s): H66.001 - Acute suppurative otitis media without spontaneous rupture of ear drum, right ear Plan: Send prescription to pharmacy and COVID tested Plan See above Orders: Orders SARS-CoV2/FLU/RSV Today J06.9 - Acute upper respiratory infection, unspecified Medications: New cefuroxime axetil 500 mg PO Q12H 10 tabs 0RF Coding Level of Care Code Est Pt Level 3 (87447) Diagnoses Non-recurrent acute suppurative otitis media of right ear without spontaneous rupture of tympanic membrane H66.001 Chronicity: acute Laterality: right Otitis media type: suppurative Recurrence: non-recurrent Spontaneous tympanic membrane rupture: without spontaneous rupture
[2023-09-17 14:03] VITALS: BP 110/82; PULSE 94; TEMP 37.1; O2SAT 97; BMI 27.1
== END ==
PROVIDERS: PCP Internal Medicine; Visit Provider Physician Assistant
DX: H66.001 Acute suppurative otitis media without spontaneous rupture of ear drum, right ear (principal)
CPT/HCPCS: 99213

== ENCOUNTER 2023-09-17 14:31 | Outpatient (REF) | payer OTHER, SELFPAY ==
[2023-09-17 17:23] LABS: Influenza A PCR NEGATIVE (Negative); Influenza B PCR NEGATIVE (Negative); Resp Syncy Virus RNA Qual PCR NEGATIVE (Negative); SARS COV2 PCR INHOUSE POSITIVE (Negative)
== END 2023-09-17 14:32 | disposition home or self-care (01) ==
LOC: HO.LAB 14:31
PROVIDERS: Visit Provider Physician Assistant
DX: J06.9 Acute upper respiratory infection, unspecified (principal)
CPT/HCPCS: 0241U

== ENCOUNTER 2023-10-21 08:28 | Outpatient (REF) | payer OTHER, SELFPAY ==
[2023-10-21 10:09] LABS: MANUAL DIFF FLAG NO
[2023-10-21 10:18] LABS: Basophils Absolute Auto 0.1 X10*3/uL (0.0-0.2); Basophils Percent Auto 1.4 % (0-2); Eosinophils Absolute Auto 0.3 X10*3/uL (0.0-0.4); Eosinophils Percent Auto 3.3 % (0-4); Hematocrit 43.6 % (42.0-52.0); Hemoglobin 14.8 g/dl (14.0-18.0); Imm Gran Abs Auto 0.02 X10*3/uL (0.00-0.03); Imm Gran Pct Auto 0.2 % (0.0-0.4); Lymphocytes Absolute Auto 4.4 X10*3/uL (1.2-4.9); Lymphocytes Percent Auto 47.9 % (20-40); Mean Corpuscular HGB Conc 33.9 g/dl (31.0-36.0); Mean Corpuscular Hemoglobin 30.4 pg (27.0-33.0); Mean Corpuscular Volume 89.5 fL (80.0-98.0); Mean Platelet Volume 11.1 fL (9.4-12.4); Monocytes Absolute Auto 0.8 X10*3/uL (0.1-1.2); Monocytes Percent Auto 8.7 % (2-11); Neutrophils Absolute Auto 3.5 x10*3/uL (2.0-8.3); Neutrophils Percent Auto 38.5 % (45-73); Platelet Count 228 X10*3/uL (160-400); Red Blood Count 4.87 X10*6/uL (4.60-5.80); White Blood Count 9.1 X10*3/uL (4.8-10.8)
[2023-10-21 10:45] LABS: Alanine Aminotransferase 24 U/L (0-40); Albumin Level 4.3 g/dL (3.5-5.0); Alkaline Phosphatase 116 U/L (39-117); Anion Gap 10 (12-20); Aspartate Amino Transferase 20 U/L (5-37); Bilirubin Total 0.3 mg/dL (0.0-1.0); Blood Urea Nitrogen 17 mg/dL (9-16); Calcium 9.1 mg/dL (8.4-10.2); Carbon Dioxide 26 mmol/L (22-29); Chloride 110 mmol/L (96-108); Cholesterol 128 mg/dL (<200); Estimated Glomerular Filt Rate > 60; Glucose Fasting 97 mg/dL (60-99); HDL Cholesterol 35 mg/dL (>40); LDL Cholesterol Calculated 69 mg/dL (<100); Potassium 3.8 mmol/L (3.3-5.1); Sodium 142 mmol/L (135-145); Total Protein 6.7 g/dL (6.5-8.0); Triglycerides 120 mg/dL (<150)
[2023-10-27 14:54] LABS: Vitamin D 25-OH, D2 <4 ng/mL; Vitamin D 25-OH, D3 14 ng/mL; Vitamin D 25-OH, Total 14 ng/mL (30-100)
== END 2023-10-21 08:29 | disposition home or self-care (01) ==
LOC: HO.HMGCLDS 08:28
PROVIDERS: PCP Internal Medicine; Visit Provider Internal Medicine
DX: R03.0 Elevated blood-pressure reading, without diagnosis of hypertension (principal); F17.210 Nicotine dependence, cigarettes, uncomplicated; K21.9 Gastro-esophageal reflux disease without esophagitis; E78.9 Disorder of lipoprotein metabolism, unspecified; F41.1 Generalized anxiety disorder
CPT/HCPCS: 36415; 80053; 80061; 82306; 85025

== ENCOUNTER 2023-10-21 08:56 | Outpatient (AMB) | payer OTHER, SELFPAY ==
[2023-10-21 08:58] VITALS: BP 142/100; PULSE 79; O2SAT 95; BMI 27.4
--- NOTE | 2023-10-21 08:58 | MHC.PC.OV ---
Vital Signs 10/21/23 08:58 Height 6 ft 2 in Weight 213 lb 2 oz BMI 27.4 BP 142/100 H Blood Pressure Location Lt brachial Position Sitting Pulse 79 Pulse Source Pulse Oximeter Pulse Oximetry (%) 95 Oxygen Delivery Method Room Air Intake Visit Reasons: Annual PE Allergies aspirin Allergy (Unknown, Verified 10/21/23 09:02) facial swelling ibuprofen Allergy (Unknown, Verified 10/21/23 09:02) Unknown NSAIDS (Non-Steroidal Anti-Inflamma Allergy (Unknown, Verified 10/21/23 09:02) Unknown penicillin V Allergy (Unknown, Verified 10/21/23 09:02) facial swelling Medication List - Last Reconciled 10/21/23 by Leeanna Joe MD atorvastatin 20 mg PO DAILY cetirizine 10 mg PO DAILY 90 days fluticasone propionate 50 mcg/actuation (Flonase Allergy Relief) 1 spray intranasal BID 30 days gabapentin 300 mg PO TID montelukast 10 mg PO DAILY 90 days tramadol 50 mg PO Q8H 30 days Tobacco use date assessed: 10/21/23 Dental Screening Dental Screen Date: 10/21/23 Did you have a dental visit in the last 12 months?: Yes Did you have a dental problem in the last 6 months where you did not have access to dental care?: No Was dental information given to patient?: Patient has dentist HPI Annual PE HPI Details Patient is a 53-year-old male came in for physical exam Patient has cut down on smoking He has started a job working with [employer] lift Patient was disabled for a while due to back pain Currently he is having back pain but tramadol does help We talked about wearing a back belt at work that might help him as well Labs were done this morning I do not have the report yet Patient declined to do colonoscopy Medication list reviewed He has mild sore throat right side on examination I do not see signs of infection At this time I would recommend to gargle with salt water And add vitamin-C to his diet If he starts having fever or productive cough patient will give me a call for antibiotic. Follow-up 3 months physical exam 1 year [facility] Medical History Left groin pain Environmental allergies Lipid disorder Anxiety, generalized Tobacco abuse Lumbar radiculitis Surgical History History of tonsillectomy Family History Father No problems noted. Mother HTN (hypertension) Brother No problems noted. Brother No problems noted. Son No problems noted. Son No problems noted. Daughter No problems noted. Daughter No problems noted. Sister No problems noted. Sister No problems noted. Sister No problems noted. Sister No problems noted. Social History Housing: House Alcohol intake: never Patient Tobacco Use Status: Current everyday Tobacco user Tobacco use type: Cigarette Cigarette Packs Per Day: 1 Years Smoked: 20 e-Cigarette/Vaping Use: Never Used service: No Current occupational status: employed Current occupation: [employer] Cognitive needs: No Hearing needs: No Vision needs: No Questionnaire PHQ-9 Over the last 2 weeks, how often have you been bothered by any of the following problems? 1. Little interest or pleasure in doing things: several days 2. Feeling down, depressed, or hopeless: not at all 3. Trouble falling or staying asleep, or sleeping too much: not at all 4. Feeling tired or having little energy: several days 5. Poor appetite or overeating: not at all 6. Feeling bad about yourself - or that you are a failure or have let yourself or your family down: not at all 7. Trouble concentrating on things, such as reading the newspaper or watching television: not at all 8. Moving or speaking so slowly that other people could have noticed. Or the opposite - being so fidgety or restless that you have been moving around a lot more than usual: not at all 9. Thoughts that you would be better off or of hurting yourself in some way: not at all Total score: 2 Depression Screening Interpretation: Negative Depression Screening Done: Yes 71437 - PHQ-9 Billing: Yes Source: Developed by Drs. Rafal Mcknight, Astrid Jimenez, Jensen Zamora and colleagues, with an educational urvashi from [employer]. Thrive Questionnaire Date Thrive assessed: 10/21/23 I am a: Patient What is your living situation today?: I have a steady place to live Within the past 12 months, did the food you bought not last and you didn't have the money to get more?: Never true Within the past 12 months, did you worry whether your food would run out before you got money to buy more?: Never true Do you have trouble paying for medicines?: No Do you have trouble getting transportation to medical appointments?: No Do you have trouble paying your heating and electricity bill?: No Do you have trouble taking care of your child, family member or friend?: No Do you have trouble with day-to-day activities such as bathing, preparing meals, shopping, managing finances, etc.?: No Are you currently unemployed and looking for a job?: No Are you interested in more education?: No Please select the resources that you would like help with: None Currently or been in a relationship where the following occur: I choose not to answer THRIVE Score: 0 AUDIT C Alcohol Use Questionnaire (AUDIT-C) 1. How often do you have a drink containing alcohol?: Never 3. How often do you have six or more drinks on one occasion?: Never Total Score: 0 Score Reviewed/Action Taken: Yes MANOJ-7 AMB Questionnaire MANOJ-7 Date MANOJ - 7 assessed: 10/21/23 Feeling nervous, anxious, or on edge: 0 = Not at all Not being able to stop or control worryin = Not at all Worrying too much about different things: 0 = Not at all Trouble relaxin = Not at all Being so restless that it is hard to sit still: 0 = Not at all Becoming easily annoyed or irritable: 0 = Not at all Feeling afraid as if something awful might happen: 0 = Not at all Total MANOJ-7 score (0-4 normal; 5-9 mild; 10-14 moderate; 15-21 severe): 0 Source: Developed by Drs. Rafal Mcknight, Astrid Jimenez, Jensen Zamora and colleagues, with an educational urvashi from [employer]. MANOJ-7 Assessment Billing MANOJ-7 Assessment Tool: MANOJ-7 Assessment 35209 Review of Systems Const Denies chills, Denies fever(s) and Denies headache(s) Eyes Denies blurry vision ENT Denies headache(s), Denies nasal discharge, Denies nasal obstruction, Denies odynophagia and Denies sinus pain Card Denies chest pain at rest and Denies chest pain with activity Resp Denies cough and Denies hemoptysis GI Denies diarrhea, Denies odynophagia, Denies vomiting and Denies hematemesis Reports as per HPI Musc Denies abnormal gait Skin/Breast Reports as per HPI Neuro Denies Neuro-related abnormal movements, Denies Abnormal speech present, Denies abnormal gait, Denies headache(s) and Denies Sensory deficit (Neuro) Psych Denies mood swings and Denies paranoia Endo Reports as per HPI Ulysses/Lymph Reports as per HPI Aller/Immun Reports as per HPI Physical exam (Primary Care) Vital Signs: Last Vital Signs Pulse 79 10/21/23 08:58 BP 142/100 H 10/21/23 08:58 Pulse Ox 95 10/21/23 08:58 Oxygen Delivery Method Room Air 10/21/23 08:58 BMI result Body Mass Index 27.4 Tobacco/Smoking Status: Tobacco use Status Tobacco use date assessed 10/21/23 10/21/23 09:03 Patient Tobacco Use Status Current everyday Tobacco 10/21/23 09:01 Tobacco use type Cigarette 10/21/23 09:01 e-Cigarette/Vaping Use Never Used 10/21/23 09:01 PHQ-9: PHQ-9 Score PHQ-9: Total score 2 10/21/23 09:18 Depression Screening Interpretation: Negative Thrive Assessment: Date of Thrive Assessment Date Thrive assessed 10/21/23 10/21/23 09:03 Currently or been in a relationship where the following occur: I choose not to answer Const General: cooperative, comfortable and no acute distress Orientation/consciousness: patient oriented x3 HENMT Head: Yes normocephalic and Yes atraumatic Eyes General: appearance normal, both eyes and all related structures Pupils: Equal, round and reactive pupils present EOM: EOMs intact bilaterally Neck Neck: Yes supple and No lymphadenopathy Thyroid: Thyroid normal Lymphatic: no lymphadenopathy noted Resp Effort & Inspection: normal respiratory effort and able to speak in complete sentences Auscultation: clear to auscultation bilaterally Cardio Heart sounds: S1 normal heart sound present and S2 normal heart sound present GI Palpation (GI): Soft to palpation and nontender Auscultation: normal bowel sounds General: Yes no CVA tenderness Back/Spine/Pelvis Back: no CVA tenderness Skin General skin exam: elasticity normal and turgor normal Neuro General: patient oriented x3 and gait normal Cranial nerves: Yes Equal, round and reactive pupils present Speech: No Abnormal speech present Sensory Exam: No Sensory deficit (Neuro) Coordination: tandem gait normal and Romberg test negative Extrem General: Yes normal exam except as noted and No edema Assessment and Plan Assessment & Plan (1) Lumbar radiculitis: Code(s): M54.16 - Radiculopathy, lumbar region (2) Lipid disorder: Code(s): E78.9 - Disorder of lipoprotein metabolism, unspecified (3) Anxiety, generalized: Code(s): F41.1 - Generalized anxiety disorder (4) Environmental allergies: Code(s): Z91.09 - Other allergy status, other than to drugs and biological substances (5) Chronic GERD: Code(s): K21.9 - Gastro-esophageal reflux disease without esophagitis (6) Nicotine dependence: Code(s): F17.200 - Nicotine dependence, unspecified, uncomplicated Qualifiers: Nicotine product type: cigarettes Substance use status: uncomplicated Qualified Code(s): F17.210 - Nicotine dependence, cigarettes, uncomplicated (7) Elevated blood pressure reading: Code(s): R03.0 - Elevated blood-pressure reading, without diagnosis of hypertension (8) Encounter for general adult medical examination with abnormal findings: Code(s): Z00.01 - Encounter for general adult medical examination with abnormal findings (9) Sore throat: Code(s): J02.9 - Acute pharyngitis, unspecified Plan Patient is a 53-year-old male came in for physical exam Patient has cut down on smoking He has started a job working with [employer] Patient was disabled for a while due to back pain Currently he is having back pain but tramadol does help We talked about wearing a back belt at work that might help him as well Labs were done this morning I do not have the report yet Patient declined to do colonoscopy Medication list reviewed Blood pressure is elevated today, it was within normal limit 09/17/2023 When patient was seen in walk-in clinic because of right ear pain We will continue to monitor blood pressure He has mild sore throat right side on examination I do not see signs of infection At this time I would recommend to gargle with salt water And add vitamin-C to his diet If he starts having fever or productive cough patient will give me a call for antibiotic. Follow-up 3 months physical exam 1 year Medications: Refilled cetirizine 10 mg PO DAILY 90 tabs 3RF 90 days Z91.09 - Other allergy status, other than to drugs and biological substances montelukast 10 mg PO DAILY 90 tabs 3RF 90 days atorvastatin 20 mg PO DAILY 90 tabs 3RF tramadol 50 mg PO Q8H 90 tabs 2RF pain 30 days M54.16 - Radiculopathy, lumbar region gabapentin 300 mg PO TID 90 caps 2RF fluticasone propionate 50 mcg/actuation (Flonase Allergy Relief) administer into each nostril 1 spray intranasal BID 16 grams 5RF 30 days Coding Level of Care Code Est Pt Level 3 (16668) Est Pt Prev Care 40-64y(89289) Diagnoses Lumbar radiculitis M54.16 Lipid disorder E78.9 Anxiety, generalized F41.1 Environmental allergies Z91.09 Chronic GERD K21.9 Cigarette nicotine dependence without complication F17.210 Nicotine product type: cigarettes Substance use status: uncomplicated Elevated blood pressure reading R03.0 Encounter for general adult medical examination with abnormal findings Z00.01 Sore throat J02.9 Additional Codes MANOJ-7 Assessment Billing - MANOJ-7 Assessment Tool: MANOJ-7 Assessment 35291 ([id number])
== END 2023-10-21 09:18 | disposition home or self-care (01) ==
PROVIDERS: PCP Internal Medicine; Visit Provider Internal Medicine
DX: Z00.00 Encounter for general adult medical examination without abnormal findings (principal); R03.0 Elevated blood-pressure reading, without diagnosis of hypertension; J02.9 Acute pharyngitis, unspecified; M54.16 Radiculopathy, lumbar region; E78.9 Disorder of lipoprotein metabolism, unspecified; F41.1 Generalized anxiety disorder; Z91.09 Other allergy status, other than to drugs and biological substances; K21.9 Gastro-esophageal reflux disease without esophagitis; F17.210 Nicotine dependence, cigarettes, uncomplicated
CPT/HCPCS: 99396

== ENCOUNTER 2024-01-06 09:16 | Outpatient (AMB) | payer OTHER, SELFPAY ==
--- NOTE | 2024-01-06 09:21 | MHC.PC.OV ---
Vital Signs 01/06/24 09:22 Height 6 ft 2 in Weight 221 lb BMI 28.4 BP 132/90 H Blood Pressure Location Rt brachial Position Sitting Pulse 82 Pulse Source Pulse Oximeter Pulse Oximetry (%) 96 Oxygen Delivery Method Room Air Intake Visit Reasons: 11 week f/u Allergies aspirin Allergy (Unknown, Verified 10/21/23 09:02) facial swelling ibuprofen Allergy (Unknown, Verified 10/21/23 09:02) Unknown NSAIDS (Non-Steroidal Anti-Inflamma Allergy (Unknown, Verified 10/21/23 09:02) Unknown penicillin V Allergy (Unknown, Verified 10/21/23 09:02) facial swelling Medication List - Last Reconciled 01/06/24 by Leeanna Joe MD atorvastatin 20 mg PO DAILY cetirizine 10 mg PO DAILY 90 days fluticasone propionate 50 mcg/actuation (Flonase Allergy Relief) 1 spray intranasal BID 30 days gabapentin 300 mg PO TID montelukast 10 mg PO DAILY 90 days tramadol 50 mg PO Q8H 30 days Tobacco use date assessed: 10/21/23 Dental Screening Dental Screen Date: 10/21/23 HPI 11 week f/u HPI Details Patient is a 53-year-old gentleman came in today for his regular three-month follow-up appointment Blood pressure continued to be elevated, I am starting him on atenolol 25 mg Vitamin D level came back low, supplement sent start taking that daily continue to smoke, once again advised patient to stop as soon as possible, he is smoking half a pack per day Patient is on Zyrtec, montelukast and Flonase nasal spray to controlled allergies Patient have a chronic lumbar pain and for that he takes tramadol 50 mg 3 times a day patient is usually seen every 3 month for follow-up due to controlled nature of this medication. He is also on gabapentin 300 mg 3 times a day.? Patient is complying with the treatment plan and it is working for him Omeprazole 20 mg as needed for dyspepsia Lipid control with atorvastatin 20 mg once a day. Follow-up 3 months [facility] Medical History Left groin pain Environmental allergies Lipid disorder Anxiety, generalized Tobacco abuse Lumbar radiculitis Surgical History History of tonsillectomy Family History Father No problems noted. Mother HTN (hypertension) Brother No problems noted. Brother No problems noted. Son No problems noted. Son No problems noted. Daughter No problems noted. Daughter No problems noted. Sister No problems noted. Sister No problems noted. Sister No problems noted. Sister No problems noted. Social History Housing: House Alcohol intake: never Patient Tobacco Use Status: Current everyday Tobacco user Tobacco use type: Cigarette Cigarette Packs Per Day: 1 Years Smoked: 20 e-Cigarette/Vaping Use: Never Used service: No Current occupational status: employed Current occupation: [employer] Cognitive needs: No Hearing needs: No Vision needs: No Questionnaire Thrive Questionnaire Date Thrive assessed: 01/06/24 I am a: Patient What is your living situation today?: I have a steady place to live Within the past 12 months, did the food you bought not last and you didn't have the money to get more?: Never true Within the past 12 months, did you worry whether your food would run out before you got money to buy more?: Never true Do you have trouble paying for medicines?: No Do you have trouble getting transportation to medical appointments?: No Do you have trouble paying your heating and electricity bill?: No Do you have trouble taking care of your child, family member or friend?: No Do you have trouble with day-to-day activities such as bathing, preparing meals, shopping, managing finances, etc.?: No Are you currently unemployed and looking for a job?: No Are you interested in more education?: No Please select the resources that you would like help with: None Currently or been in a relationship where the following occur: I choose not to answer THRIVE Score: 0 MANOJ-7 AMB Questionnaire MANOJ-7 Date MANOJ - 7 assessed: 10/21/23 Source: Developed by Drs. Rafal Mcknight, Astrid Jimenez, Jensen Zamora and colleagues, with an educational urvashi from [employer]. Review of Systems Const Denies chills and Denies fever(s) ENT Denies epistaxis and Denies nasal discharge Card Denies chest pain Resp Denies chest congestion, Denies cough and Denies hemoptysis GI Denies diarrhea and Denies nausea Skin/Breast Denies rash Neuro Reports no additional complaints Psych Reports no additional complaints Endo Reports no additional complaints Physical exam (Primary Care) Vital Signs: Last Vital Signs Pulse 82 01/06/24 09:22 BP 132/90 H 01/06/24 09:22 Pulse Ox 96 01/06/24 09:22 Oxygen Delivery Method Room Air 01/06/24 09:22 BMI result Body Mass Index 28.4 Tobacco/Smoking Status: Tobacco use Status Tobacco use date assessed 10/21/23 01/06/24 09:24 Patient Tobacco Use Status Current everyday Tobacco 01/06/24 09:24 Tobacco use type Cigarette 01/06/24 09:24 e-Cigarette/Vaping Use Never Used 01/06/24 09:24 Thrive Assessment: Date of Thrive Assessment Date Thrive assessed 01/06/24 01/06/24 09:24 Currently or been in a relationship where the following occur: I choose not to answer Const General: cooperative, comfortable and no acute distress Orientation/consciousness: patient oriented x3 HENMT Head: Yes normocephalic Eyes General: appearance normal, both eyes and all related structures Neck Neck: Yes supple Resp Effort & Inspection: normal respiratory effort, no cough and no stridor Cardio Rhythm: regular rhythm Heart sounds: S1 normal heart sound present and S2 normal heart sound present Skin General skin exam: turgor normal Neuro General: patient oriented x3, tone normal and moves all extremities Extrem Right lower extremity: no edema Left lower extremity: no edema Coding Level of Care Code Est Pt Level 4 (49009) Diagnoses Hypertension, essential I10 Chronic GERD K21.9 Lipid disorder E78.9 Environmental allergies Z91.09 Lumbar radiculitis M54.16 Tobacco abuse Z72.0 Assessment & Plan Assessment & Plan (1) Hypertension, essential: Code(s): I10 - Essential (primary) hypertension Category: Medical (2) Chronic GERD: Code(s): K21.9 - Gastro-esophageal reflux disease without esophagitis Category: Medical (3) Lipid disorder: Code(s): E78.9 - Disorder of lipoprotein metabolism, unspecified Category: Medical (4) Environmental allergies: Code(s): Z91.09 - Other allergy status, other than to drugs and biological substances Category: Medical (5) Lumbar radiculitis: Code(s): M54.16 - Radiculopathy, lumbar region Category: Medical (6) Tobacco abuse: Code(s): Z72.0 - Tobacco use Category: Medical Plan Patient is a 53-year-old gentleman came in today for his regular three-month follow-up appointment Blood pressure continued to be elevated, I am starting him on atenolol 25 mg Vitamin D level came back low, supplement sent start taking that daily continue to smoke, once again advised patient to stop as soon as possible, he is smoking half a pack per day Patient is on Zyrtec, montelukast and Flonase nasal spray to controlled allergies Patient have a chronic lumbar pain and for that he takes tramadol 50 mg 3 times a day patient is usually seen every 3 month for follow-up due to controlled nature of this medication. He is also on gabapentin 300 mg 3 times a day.? Patient is complying with the treatment plan and it is working for him Omeprazole 20 mg as needed for dyspepsia Lipid control with atorvastatin 20 mg once a day. Follow-up 3 months Medications: New cholecalciferol (vitamin D3) 25 mcg PO DAILY 90 days 90 caps 1RF atenolol 25 mg PO DAILY 90 tabs 0RF [Blood pressure monitor] As directed 1 ea 0RF I10 - Essential (primary) hypertension Refilled gabapentin 300 mg PO TID 90 caps 2RF tramadol 50 mg PO Q8H 30 days 90 tabs 2RF pain M54.16 - Radiculopathy, lumbar region
[2024-01-06 09:22] VITALS: BP 132/90; PULSE 82; O2SAT 96; BMI 28.4
== END 2024-01-06 09:46 | disposition home or self-care (01) ==
PROVIDERS: PCP Internal Medicine; Visit Provider Internal Medicine
DX: I10 Essential (primary) hypertension (principal); K21.9 Gastro-esophageal reflux disease without esophagitis; E78.9 Disorder of lipoprotein metabolism, unspecified; Z91.09 Other allergy status, other than to drugs and biological substances; M54.16 Radiculopathy, lumbar region; Z72.0 Tobacco use

== ENCOUNTER → 2024-01-06 09:16 | Outpatient (BNVA) | payer OTHER, SELFPAY | PROVIDERS: PCP Internal Medicine; Visit Provider Internal Medicine | DX: I10 Essential (primary) hypertension (principal); K21.9 Gastro-esophageal reflux disease without esophagitis; E78.9 Disorder of lipoprotein metabolism, unspecified; M54.16 Radiculopathy, lumbar region; Z91.09 Other allergy status, other than to drugs and biological substances; Z72.0 Tobacco use | CPT/HCPCS: 99212 ==

== ENCOUNTER 2024-04-07 11:48 | Outpatient (AMB) | payer OTHER, SELFPAY ==
--- NOTE | 2024-04-07 12:04 | AM.OFFWIN_ITS ---
Intake Vital Signs 04/07/24 12:06 Weight 218 lb BP 124/78 Blood Pressure Location Lt brachial Position Sitting Pulse 70 Pulse Source Pulse Oximeter Temp 98.4 F Temp Source Oral Pulse Oximetry (%) 95 Oxygen Delivery Method Room Air Intake Visit Reasons: EP headache, cough, throat pain, congestion Intake Note: Patient here for headache, cough and congestion that has been present for a couple of days. Patient Tobacco Use Status: Current everyday Tobacco user Allergies aspirin Allergy (Unknown, Verified 04/07/24 12:06) facial swelling ibuprofen Allergy (Unknown, Verified 04/07/24 12:06) Unknown NSAIDS (Non-Steroidal Anti-Inflamma Allergy (Unknown, Verified 04/07/24 12:06) Unknown penicillin V Allergy (Unknown, Verified 04/07/24 12:06) facial swelling Do you need a note to return to daycare/school/sports/work: Yes HPI HPI Comments History of Present Illness Details History - The patient is a 53-year-old male pres enting with a sore throat, headache, cough, fatigue, and nasal congestion. - Symptoms have been present for 2-3 day s with significant worsening upon sleeping. - The patient reported alternating sensa tions of chills, but no overt fever was noted. - No history of respiratory illnesses salcedo ch as asthma or COPD. - The patient has been using allergy med ications for nasal symptoms - is home with similar symptoms but did not seek medical care and has no diagnosis. Physical Exam General: Cooperative, healthy appearing, comfortable and no acute distress Orientation/consciousness: Patient oriented x3 Limitations: No limitations Head: Normal to inspection Ears: Hearing grossly normal bilaterally, external ears normal. Bilateral TM's with fluid, no erythema or infection noted Nose: Normal external nose present, Normal nares present and No nasal discharge present. Nasal congestion noted Face and sinus: Normal facial exam and Yes sinuses nontender Mouth: Normal oral and palatal mucosa present and moist mucous membranes Throat: Yes tonsils normal, Yes uvula midline. Posterior oropharynx erythema noted Eyes: Appearance normal, both eyes and all related structures Neck: Normal visual inspection Respiratory: Clear to auscultation bilaterally. Normal respiratory effort, able to speak in complete sentences, no respiratory distress, not tachypneic, no tripod positioning and no use of accessory muscles Cardiovascular: Regular rate and rhythm. Normal S1 and S2 Skin: No rashes or lesions noted Neuro: Patient oriented x3 Extremities: Normal to inspection and Yes no clubbing, cyanosis or edema [facility] Medical History Left groin pain Environmental allergies Lipid disorder Anxiety, generalized Tobacco abuse Lumbar radiculitis Surgical History History of tonsillectomy Family History Father No problems noted. Mother HTN (hypertension) Brother No problems noted. Brother No problems noted. Son No problems noted. Son No problems noted. Daughter No problems noted. Daughter No problems noted. Sister No problems noted. Sister No problems noted. Sister No problems noted. Sister No problems noted. Social History Housing: House Alcohol intake: never Patient Tobacco Use Status: Current everyday Tobacco user Tobacco use type: Cigarette Cigarette Packs Per Day: 1 Years Smoked: 20 e-Cigarette/Vaping Use: Never Used service: No Current occupational status: employed Current occupation: [employer] Cognitive needs: No Hearing needs: No Vision needs: No Review of Systems Const All systems reviewed & are unremarkable except as noted in HPI and below Physical Exam Vital Signs: Last Vital Signs Temp 98.4 F 04/07/24 12:06 Pulse 70 04/07/24 12:06 BP 124/78 04/07/24 12:06 Pulse Ox 95 04/07/24 12:06 Oxygen Delivery Method Room Air 04/07/24 12:06 Assessment & Plan Assessment & Plan (1) URI, acute: Code(s): J06.9 - Acute upper respiratory infection, unspecified Plan: The plan includes a targeted approach to the suspected upper respiratory infection symptoms. Flonase nasal spray is recommended twice daily to alleviate congestion and aid in drying the ear fluid. Additionally, Benadryl should be administered at night to support restful sleep and relieve allergy symptoms and address ear fluid. Proper use of nasal spray techniques was shared to enhance efficacy. Testing for influenza, COVID-19, and RSV will be conducted with results communicated. Patient was informed and verbally consented to the use of an ambient scribe for clinic note documentation during this visit (2) Excessive cerumen in right ear canal: Code(s): H61.21 - Impacted cerumen, right ear Plan: Debrox ear drops can be used periodically to prevent wax buildup. If ear symptoms worsen, further assessment will be necessary. Orders: Orders SARS-CoV2/FLU/RSV Today J06.9 - Acute upper respiratory infection, unspecified Coding Level of Care Code Est Pt Level 3 (63596) Diagnoses URI, acute J06.9 Excessive cerumen in right ear canal H61.21
[2024-04-07 12:06] VITALS: BP 124/78; PULSE 70; TEMP 36.9; O2SAT 95
== END 2024-04-07 12:47 | disposition home or self-care (01) ==
PROVIDERS: PCP Internal Medicine; Visit Provider Physician Assistant
DX: J06.9 Acute upper respiratory infection, unspecified (principal); H61.21 Impacted cerumen, right ear

== ENCOUNTER 2024-04-07 11:48 | Outpatient (REF) | payer OTHER, SELFPAY ==
[2024-04-07 14:19] LABS: Influenza A PCR NEGATIVE (Negative); Influenza B PCR NEGATIVE (Negative); Resp Syncy Virus RNA Qual PCR NEGATIVE (Negative); SARS COV2 PCR INHOUSE NEGATIVE (Negative)
== END 2024-04-07 11:49 | disposition home or self-care (01) ==
LOC: HO.LAB 11:48
PROVIDERS: PCP Internal Medicine; Visit Provider Physician Assistant
DX: J06.9 Acute upper respiratory infection, unspecified (principal); H61.21 Impacted cerumen, right ear
CPT/HCPCS: 0241U; 99212

== ENCOUNTER 2024-05-27 08:47 | Outpatient (AMB) | payer OTHER, SELFPAY ==
--- NOTE | 2024-05-27 08:51 | A.OFFPC_ITS ---
Vital Signs 05/27/24 08:52 Height 6 ft 2 in Weight 220 lb BMI 28.2 BP 124/80 Blood Pressure Location Lt brachial Position Sitting Respiration 18 Pulse 73 Pulse Source Pulse Oximeter Temp 98.2 F Temp Source Oral Pulse Oximetry (%) 97 Oxygen Delivery Method Room Air Intake Visit Reasons: medication review Allergies aspirin Allergy (Unknown, Verified 05/27/24 08:52) facial swelling ibuprofen Allergy (Unknown, Verified 05/27/24 08:52) Unknown NSAIDS (Non-Steroidal Anti-Inflamma Allergy (Unknown, Verified 05/27/24 08:52) Unknown penicillin V Allergy (Unknown, Verified 05/27/24 08:52) facial swelling Medication List - Last Reconciled 05/27/24 by Leeanna Joe MD atenolol 25 mg PO DAILY atorvastatin 20 mg PO DAILY [Blood pressure monitor As directed] cetirizine 10 mg PO DAILY 90 days cholecalciferol (vitamin D3) 25 mcg PO DAILY 90 days fluticasone propionate 50 mcg/actuation (Flonase Allergy Relief) 1 spray intranasal BID 30 days gabapentin 300 mg PO TID montelukast 10 mg PO DAILY 90 days tramadol 50 mg PO Q8H 30 days Tobacco use date assessed: 05/27/24 Dental Screening Dental Screen Date: 05/27/24 Did you have a dental visit in the last 12 months?: Yes Did you have a dental problem in the last 6 months where you did not have access to dental care?: No Was dental information given to patient?: Patient has dentist HPI medication review HPI Details History - The patient is a 53-year-old male pres enting with medication refills and a blood test. Patient suffers from lower extremity neuropathy and chronic back pain He is on tramadol chronically and gabapentin - Missed scheduled appointment at the en of February, resulting in limited medication supply. - Blood pressure medication preserved cu rrent control over hypertension but requires consistent monitoring. - Last laboratory evaluation noted Vitam in D deficiency, requiring supplementation. - Chronic allergic rhinitis is managed w ith daily medication. - Tobacco use continues despite health r isks, requiring ongoing counseling for cessation. Problem List - Essential Hypertension - Vitamin D Deficiency - Allergic Rhinitis - Tobacco Use Disorder - lipid disorder - lower extremity neuropathy - chronic back pain Patient Instructions - Continue current medications as prescr ibed: Atenolol, Atorvastatin, Cetirizine, Vitamin D, Flonase nasal spray, Gabapentin, Montelukast, and Tramadol. - Ensure timely attendance at follow-up appointments to avoid lapses in medication. - Maintain allergy management routine an d refrain from using Q-tips for ear cleaning. - Quit smoking to improve overall health ; explore alternative ways to spend the money traditionally spent on cigarettes. - Return to the clinic for blood work as ordered. Review of Systems - General: No fever no chills - Neurological: No headaches no dizziness - Ear nose throat: No sore throat no hearing difficulty - Cardiovascular: No syncope, no chest pain, no palpitations - Gastrointestinal: No nausea vomiting or diarrhea - Endocrine: No polyuria polydipsia no heat intolerance - Genitourinary: No dysuria , no blood in urine Physical Exam General: No acute distress HEENT: no infection noted Neck: Supple Respiratory system: Able to talk in full sentences, no audible wheeze Cardiovascular: S1-S2 regular in rate and rhythm Gastrointestinal: No pain Extremities: No new findings 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 Mother HTN (hypertension) Brother No problems noted. Brother No problems noted. Son No problems noted. Son No problems noted. Daughter No problems noted. Daughter No problems noted. Sister No problems noted. Sister No problems noted. Sister No problems noted. Sister No problems noted. Social History Housing: House Alcohol intake: never Patient Tobacco Use Status: Current everyday Tobacco user Tobacco use type: Cigarette Cigarette Packs Per Day: 1 Years Smoked: 20 e-Cigarette/Vaping Use: Never Used service: No Current occupational status: employed Current occupation: [employer] Cognitive needs: No Hearing needs: No Vision needs: No Questionnaire PHQ-9 Over the last 2 weeks, how often have you been bothered by any of the following problems? 1. Little interest or pleasure in doing things: several days 2. Feeling down, depressed, or hopeless: not at all 3. Trouble falling or staying asleep, or sleeping too much: not at all 4. Feeling tired or having little energy: several days 5. Poor appetite or overeating: not at all 6. Feeling bad about yourself - or that you are a failure or have let yourself or your family down: not at all 7. Trouble concentrating on things, such as reading the newspaper or watching television: not at all 8. Moving or speaking so slowly that other people could have noticed. Or the opposite - being so fidgety or restless that you have been moving around a lot more than usual: not at all 9. Thoughts that you would be better off or of hurting yourself in some way: not at all Total score: 2 Depression Screening Interpretation: Negative Depression Screening Done: Yes 57040 - PHQ-9 Billing: Yes Source: Developed by Drs. Rafal Mcknight, Astrid Jimenez, Jensen Zamora and colleagues, with an educational urvashi from [employer]. Thrive Questionnaire Date Thrive assessed: 05/27/24 I am a: Patient What is your living situation today?: I have a steady place to live Within the past 12 months, did the food you bought not last and you didn't have the money to get more?: Often true Within the past 12 months, did you worry whether your food would run out before you got money to buy more?: Often true Do you have trouble paying for medicines?: No Do you have trouble getting transportation to medical appointments?: No Do you have trouble paying your heating and electricity bill?: No Do you have trouble taking care of your child, family member or friend?: No Do you have trouble with day-to-day activities such as bathing, preparing meals, shopping, managing finances, etc.?: No Are you currently unemployed and looking for a job?: No Are you interested in more education?: Yes Please select the resources that you would like help with: None Currently or been in a relationship where the following occur: I choose not to answer THRIVE Score: 2 AUDIT C Alcohol Use Questionnaire (AUDIT-C) 1. How often do you have a drink containing alcohol?: Never 3. How often do you have six or more drinks on one occasion?: Never Total Score: 0 MANOJ-7 AMB Questionnaire MANOJ-7 Date MANOJ - 7 assessed: 05/27/24 Feeling nervous, anxious, or on edge: 0 = Not at all Not being able to stop or control worryin = Not at all Worrying too much about different things: 0 = Not at all Trouble relaxin = Not at all Being so restless that it is hard to sit still: 0 = Not at all Becoming easily annoyed or irritable: 0 = Not at all Feeling afraid as if something awful might happen: 0 = Not at all Total MANOJ-7 score (0-4 normal; 5-9 mild; 10-14 moderate; 15-21 severe): 0 Source: Developed by Drs. Rafal Mcknight, Astrid Jimenez, Jensen Zamora and colleagues, with an educational urvashi from [employer]. MANOJ-7 Assessment Billing MANOJ-7 Assessment Tool: MANOJ-7 Assessment 60088 Physical exam (Primary Care) Vital Signs: Last Vital Signs Temp 98.2 F 05/27/24 08:52 Pulse 73 05/27/24 08:52 Resp 18 05/27/24 08:52 BP 124/80 05/27/24 08:52 Pulse Ox 97 05/27/24 08:52 Oxygen Delivery Method Room Air 05/27/24 08:52 BMI result Body Mass Index 28.2 Tobacco/Smoking Status: Tobacco use Status Tobacco use date assessed 05/27/24 05/27/24 08:55 Patient Tobacco Use Status Current everyday Tobacco 05/27/24 08:55 Tobacco use type Cigarette 05/27/24 08:55 e-Cigarette/Vaping Use Never Used 05/27/24 08:55 PHQ-9: PHQ-9 Score PHQ-9: Total score 2 05/27/24 09:10 Depression Screening Interpretation: Negative Thrive Assessment: Date of Thrive Assessment Date Thrive assessed 05/27/24 05/27/24 08:55 Currently or been in a relationship where the following occur: I choose not to a nswer Coding Level of Care Code Est Pt Level 4 (52365) Diagnoses Hypertension, essential I10 Lumbar radiculitis M54.16 Chronic GERD K21.9 Environmental allergies Z91.09 Lipid disorder E78.9 Anxiety, generalized F41.1 Tobacco abuse Z72.0 Cigarette nicotine dependence without complication F17.210 Nicotine product type: cigarettes Substance use status: uncomplicated Neuropathy involving both lower extremities G57.93 Laterality: bilateral Additional Codes MAONJ-7 Assessment Billing - MANOJ-7 Assessment Tool: MANOJ-7 Assessment 61272 ([id number]) PHQ-9 - 76490 - PHQ-9 Billing: Yes ([id number]) Assessment & Plan Assessment & Plan (1) Hypertension, essential: Code(s): I10 - Essential (primary) hypertension Category: Medical (2) Lumbar radiculitis: Code(s): M54.16 - Radiculopathy, lumbar region Category: Medical (3) Chronic GERD: Code(s): K21.9 - Gastro-esophageal reflux disease without esophagitis Category: Medical (4) Environmental allergies: Code(s): Z91.09 - Other allergy status, other than to drugs and biological substances Category: Medical (5) Lipid disorder: Code(s): E78.9 - Disorder of lipoprotein metabolism, unspecified Category: Medical (6) Anxiety, generalized: Code(s): F41.1 - Generalized anxiety disorder Category: Medical (7) Tobacco abuse: Code(s): Z72.0 - Tobacco use Category: Medical (8) Nicotine dependence: Code(s): F17.200 - Nicotine dependence, unspecified, uncomplicated Category: Medical Qualifiers: Nicotine product type: cigarettes Substance use status: uncomplicated Qualified Code(s): F17.210 - Nicotine dependence, cigarettes, uncomplicated (9) Lower extremity neuropathy: Code(s): G57.90 - Unspecified mononeuropathy of unspecified lower limb Category: Medical Qualifiers: Laterality: bilateral Qualified Code(s): G57.93 - Unspecified mononeuropathy of bilateral lower limbs Plan History - The patient is a 53-year-old male presenting with medication refills and a blood test. Patient suffers from lower extremity neuropathy and chronic back pain He is on tramadol chronically and gabapentin - Missed scheduled appointment at the end of February, resulting in limited medication supply. - Blood pressure medication preserved current control over hypertension but requires consistent monitoring. - Last laboratory evaluation noted Vitamin D deficiency, requiring supplementat ion. - Chronic allergic rhinitis is managed with daily medication. - Tobacco use continues despite health risks, requiring ongoing counseling for cessation. Problem List - Essential Hypertension - Vitamin D Deficiency - Allergic Rhinitis - Tobacco Use Disorder - lipid disorder - lower extremity neuropathy - chronic back pain Patient Instructions - Continue current medications as prescribed: Atenolol, Atorvastatin, Cetirizine, Vitamin D, Flonase nasal spray, Gabapentin, Montelukast, and Tramadol. - Ensure timely attendance at follow-up appointments to avoid lapses in medication. - Maintain allergy management routine and refrain from using Q-tips for ear cleaning. - Quit smoking to improve overall health; explore alternative ways to spend the money traditionally spent on cigarettes. - Return to the clinic for blood work as ordered. Orders: Orders Complete Blood Count Auto Diff Today E78.9 - Disorder of lipoprotein metabolism, unspecified, F41.1 - Generalized anxiety disorder, I10 - Essential (primary) hypertension, K21.9 - Gastro-esophageal reflux disease without esop hagitis, M54.16 - Radiculopathy, lumbar region, Z72.0 - Tobacco use, Z91.09 - Other allergy status, other than to drugs and biological substances Comprehensive Met. Panel Today E78.9 - Disorder of lipoprotein metabolism, unspecified, F41.1 - Generalized anxiety disorder, I10 - Essential (primary) hypertension, K21.9 - Gastro-esophageal reflux disease without esophagitis, M54.16 - Radiculopathy, lumbar region, Z72.0 - Tobacco use, Z91.09 - Other allergy status, other than to drugs and biological substances LDL Cholesterol Direct Today E78.9 - Disorder of lipoprotein metabolism, unspecified, F41.1 - Generalized anxiety disorder, I10 - Essential (primary) hypertension, K21.9 - Gastro-esophageal reflux disease without esophagitis, M54.16 - Radiculopathy, lumbar region, Z72.0 - Tobacco use, Z91.09 - Other allergy status, other than to drugs and biological substances Medications: Refilled tramadol 50 mg PO Q8H 90 tabs 2RF pain 30 days M54.16 - Radiculopathy, lumbar region gabapentin 300 mg PO TID 90 caps 0RF
[2024-05-27 08:52] VITALS: BP 124/80; PULSE 73; RESP 18; TEMP 36.8; O2SAT 97; BMI 28.2
== END 2024-05-27 09:10 | disposition home or self-care (01) ==
LOC: HO.HMCC 08:48
PROVIDERS: PCP Internal Medicine; Visit Provider Internal Medicine
DX: I10 Essential (primary) hypertension (principal); M54.16 Radiculopathy, lumbar region; K21.9 Gastro-esophageal reflux disease without esophagitis; Z91.09 Other allergy status, other than to drugs and biological substances; E78.9 Disorder of lipoprotein metabolism, unspecified; F41.1 Generalized anxiety disorder; Z72.0 Tobacco use; F17.210 Nicotine dependence, cigarettes, uncomplicated; G57.93 Unspecified mononeuropathy of bilateral lower limbs

== ENCOUNTER 2024-05-27 08:47 | Outpatient (REF) | payer OTHER, SELFPAY ==
[2024-05-27 10:14] LABS: MANUAL DIFF FLAG NO
[2024-05-27 10:22] LABS: Basophils Absolute Auto 0.1 X10*3/uL (0.0-0.2); Basophils Percent Auto 1.2 % (0-2); Eosinophils Absolute Auto 0.3 X10*3/uL (0.0-0.4); Eosinophils Percent Auto 2.9 % (0-4); Hematocrit 43.5 % (42.0-52.0); Hemoglobin 14.6 g/dl (14.0-18.0); Imm Gran Abs Auto 0.02 X10*3/uL (0.00-0.03); Imm Gran Pct Auto 0.2 % (0.0-0.4); Lymphocytes Absolute Auto 4.2 X10*3/uL (1.2-4.9); Lymphocytes Percent Auto 48.3 % (20-40); Mean Corpuscular HGB Conc 33.6 g/dl (31.0-36.0); Mean Corpuscular Hemoglobin 30.2 pg (27.0-33.0); Mean Corpuscular Volume 89.9 fL (80.0-98.0); Mean Platelet Volume 11.6 fL (9.4-12.4); Monocytes Absolute Auto 0.6 X10*3/uL (0.1-1.2); Monocytes Percent Auto 7.4 % (2-11); Neutrophils Absolute Auto 3.5 x10*3/uL (2.0-8.3); Platelet Count 217 X10*3/uL (160-400); Red Blood Count 4.84 X10*6/uL (4.60-5.80); Red Cell Distribution Width 12.9 % (11.0-16.0); White Blood Count 8.7 X10*3/uL (4.8-10.8)
[2024-05-27 11:27] LABS: Alanine Aminotransferase 30 U/L (0-40); Albumin Level 4.3 g/dL (3.5-5.0); Alkaline Phosphatase 107 U/L (39-117); Anion Gap 10 (12-20); Aspartate Amino Transferase 28 U/L (5-37); Bilirubin Total 0.3 mg/dL (0.0-1.0); Blood Urea Nitrogen 24 mg/dL (9-16); Calcium 9.3 mg/dL (8.4-10.2); Carbon Dioxide 21 mmol/L (22-29); Chloride 113 mmol/L (96-108); Estimated Glomerular Filt Rate > 60; Glucose Random 102 mg/dL (60-115); Potassium 4.3 mmol/L (3.3-5.1); Sodium 140 mmol/L (135-145); Total Protein 6.9 g/dL (6.5-8.0)
[2024-05-30 00:18] LABS: LDL Cholesterol Direct 87 mg/dL (<100)
== END 2024-05-27 08:48 | disposition home or self-care (01) ==
LOC: HO.HMGCLDS 08:47
PROVIDERS: PCP Internal Medicine; Visit Provider Internal Medicine
DX: I10 Essential (primary) hypertension (principal); M54.16 Radiculopathy, lumbar region; K21.9 Gastro-esophageal reflux disease without esophagitis; E78.9 Disorder of lipoprotein metabolism, unspecified; F41.1 Generalized anxiety disorder; F17.210 Nicotine dependence, cigarettes, uncomplicated; G57.93 Unspecified mononeuropathy of bilateral lower limbs; Z91.09 Other allergy status, other than to drugs and biological substances; Z79.899 Other long term (current) drug therapy
CPT/HCPCS: 36415; 80053; 83721; 85025; 96127; 99212

== ENCOUNTER 2024-07-27 09:27 | Outpatient (AMB) | payer OTHER, SELFPAY ==
--- NOTE | 2024-07-27 09:29 | A.OFFPC_ITS ---
Vital Signs 07/27/24 09:32 Height 6 ft 2 in Weight 219 lb 2 oz BMI 28.1 BP 128/86 Blood Pressure Location Lt brachial Position Sitting Respiration 18 Pulse 70 Pulse Source Pulse Oximeter Temp 98.7 F Temp Source Oral Pulse Oximetry (%) 96 Oxygen Delivery Method Room Air Intake Visit Reasons: 11 weeks f/up Allergies aspirin Allergy (Unknown, Verified 07/27/24 09:33) facial swelling ibuprofen Allergy (Unknown, Verified 07/27/24 09:33) Unknown NSAIDS (Non-Steroidal Anti-Inflamma Allergy (Unknown, Verified 07/27/24 09:33) Unknown penicillin V Allergy (Unknown, Verified 07/27/24 09:33) facial swelling Medication List - Last Reconciled 07/27/24 by Leeanna Joe MD atenolol 25 mg PO DAILY atorvastatin 20 mg PO DAILY [Blood pressure monitor As directed] cetirizine 10 mg PO DAILY 90 days cholecalciferol (vitamin D3) 25 mcg PO DAILY 90 days fluticasone propionate 50 mcg/actuation (Flonase Allergy Relief) 1 spray intranasal BID 30 days gabapentin 300 mg PO TID montelukast 10 mg PO DAILY 90 days tramadol 50 mg PO Q8H 30 days Tobacco use date assessed: 07/27/24 Dental Screening Dental Screen Date: 05/27/24 HPI 11 weeks f/up HPI Details History - The patient is a 53-year-old male pres enting with chronic low back pain and right leg pain. - The patient reports a history of chron ic low back pain, which occasionally worsens but is generally manageable with medication. He last saw a back specialist a long time ago and currently does not see a need to consult one again. - The right leg pain is associated with the back pain chronic - He experiences allergic symptoms, part icularly sneezing and tiredness, which worsen during the allergy season. The patient is currently addressing these symptoms with medications such as cetirizine, montelukast, and Flonase. - There is an ongoing prescription for h ypertension and hyperlipidemia, which the patient manages with atenolol and atorvastatin respectively. - The patient has a history of vitamin D deficiency and acknowledges the need to continue supplementation . - Nicotine dependence continues, with patient acknowledging difficulty in quitting smoking. No previous cessation attempts discussed. Medical History: - Chronic Low Back Pain - Right Leg Pain - Allergic Rhinitis - Essential Hypertension - Hyperlipidemia - Vitamin D Deficiency - Nicotine Dependence Medications: - Atenolol 25 mg for hypertension - Atorvastatin for hyperlipidemia - Cetirizine for allergic rhinitis - Gabapentin for chronic low back pain - Montelukast for allergic rhinitis - Tramadol for chronic low back pain - Vitamin D supplementation for deficien cy Social History: - The patient is a current smoker and re cognizes the need to quit smoking but continues to find it difficult. Diagnostic Results: - Labs (May): CBC is normal, kidney fu nctions are normal, electrolytes are normal, liver enzymes are normal, LDL is 87. Problem List - Chronic Low Back Pain - Right Leg Pain - Allergic Rhinitis - Essential Hypertension - Hyperlipidemia - Vitamin D Deficiency - Nicotine Dependence Patient Instructions - Continue taking all prescribed medicat ions and refill as needed. - Ensure the continuation of vitamin D s upplementation. - Be cautious during allergy season to a void exacerbating symptoms. - Consider smoking cessation strategies to improve overall health. - Book the next appointment prior to run tristan out of medications. Review of Systems - General: No fever no chills - Neurological: No headaches no dizziness - Ear nose throat: No sore throat no hearing difficulty no ear pain - Cardiovascular: No syncope, no chest pain, no palpitations - Gastrointestinal: No nausea vomiting or diarrhea - Endocrine: No polyuria polydipsia no heat intolerance - Genitourinary: No dysuria , no blood in urine Physical Exam General: No acute distress HEENT: No acute findings Neck: Supple Respiratory system: Able to talk in full sentences, no audible wheeze Cardiovascular: S1-S2 regular in rate and rhythm Gastrointestinal: No pain Extremities: Right leg bothering 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 Mother HTN (hypertension) Brother No problems noted. Brother No problems noted. Son No problems noted. Son No problems noted. Daughter No problems noted. Daughter No problems noted. Sister No problems noted. Sister No problems noted. Sister No problems noted. Sister No problems noted. Social History Housing: House Alcohol intake: never Patient Tobacco Use Status: Current everyday Tobacco user Tobacco use type: Cigarette Cigarette Packs Per Day: 1 Years Smoked: 20 Packs Per Year: 20 e-Cigarette/Vaping Use: Never Used service: No Current occupational status: employed Current occupation: [employer] Cognitive needs: No Hearing needs: No Vision needs: No Questionnaire PHQ-9 Over the last 2 weeks, how often have you been bothered by any of the following problems? 1. Little interest or pleasure in doing things: not at all 2. Feeling down, depressed, or hopeless: not at all 3. Trouble falling or staying asleep, or sleeping too much: not at all 4. Feeling tired or having little energy: not at all 5. Poor appetite or overeating: not at all 6. Feeling bad about yourself - or that you are a failure or have let yourself or your family down: not at all 7. Trouble concentrating on things, such as reading the newspaper or watching television: not at all 8. Moving or speaking so slowly that other people could have noticed. Or the opposite - being so fidgety or restless that you have been moving around a lot more than usual: not at all 9. Thoughts that you would be better off or of hurting yourself in some way: not at all Total score: 0 Depression Screening Interpretation: Negative Depression Screening Done: Yes 53528 - PHQ-9 Billing: Yes Source: Developed by Drs. Rafal Mcknight, Astrid Jimenez, Jensen Zamora and colleagues, with an educational urvashi from [employer]. Thrive Questionnaire Date Thrive assessed: 07/27/24 I am a: Patient What is your living situation today?: I have a steady place to live Within the past 12 months, did the food you bought not last and you didn't have the money to get more?: Often true Within the past 12 months, did you worry whether your food would run out before you got money to buy more?: Often true Do you have trouble paying for medicines?: No Do you have trouble getting transportation to medical appointments?: No Do you have trouble paying your heating and electricity bill?: No Do you have trouble taking care of your child, family member or friend?: No Do you have trouble with day-to-day activities such as bathing, preparing meals, shopping, managing finances, etc.?: No Are you currently unemployed and looking for a job?: No Are you interested in more education?: Yes Please select the resources that you would like help with: None Currently or been in a relationship where the following occur: I choose not to answer THRIVE Score: 2 AUDIT C Alcohol Use Questionnaire (AUDIT-C) 1. How often do you have a drink containing alcohol?: Never 3. How often do you have six or more drinks on one occasion?: Never Total Score: 0 Score Reviewed/Action Taken: Yes MANOJ-7 AMB Questionnaire MANOJ-7 Date MANOJ - 7 assessed: 05/27/24 Source: Developed by Drs. Rafal Mcknight, Astrid Jimenez, Jensen Zamora and colleagues, with an educational urvashi from [employer]. Physical exam (Primary Care) Vital Signs: Last Vital Signs Temp 98.7 F 07/27/24 09:32 Pulse 70 07/27/24 09:32 Resp 18 07/27/24 09:32 BP 128/86 07/27/24 09:32 Pulse Ox 96 07/27/24 09:32 Oxygen Delivery Method Room Air 07/27/24 09:32 BMI result Body Mass Index 28.1 Tobacco/Smoking Status: Tobacco use Status Tobacco use date assessed 07/27/24 07/27/24 09:35 Patient Tobacco Use Status Current everyday Tobacco 07/27/24 09:29 Tobacco use type Cigarette 07/27/24 09:29 e-Cigarette/Vaping Use Never Used 07/27/24 09:29 Are you ready to quit: No Tobacco cessation counseling provided: Yes Relapse Prevention: discussed the importance of a supportive environment CPT code: 65141 - 4-10 Minutes PHQ-9: PHQ-9 Score PHQ-9: Total score 0 07/27/24 09:49 Depression Screening Interpretation: Negative Thrive Assessment: Date of Thrive Assessment Date Thrive assessed 07/27/24 07/27/24 09:35 Currently or been in a relationship where the following occur: I choose not to answer Coding Level of Care Code Est Pt Level 4 (18154) Diagnoses Hypertension, essential I10 Lumbar radiculitis M54.16 Tobacco abuse Z72.0 Anxiety, generalized F41.1 Lipid disorder E78.9 Environmental allergies Z91.09 Chronic GERD K21.9 Additional Codes PHQ-9 - 63443 - PHQ-9 Billing: Yes ([id number]) Vital Signs *Quality* - CPT code: 02838 - 4-10 Minutes ([id number]) Assessment & Plan Assessment & Plan (1) Hypertension, essential: Code(s): I10 - Essential (primary) hypertension Category: Medical (2) Lumbar radiculitis: Code(s): M54.16 - Radiculopathy, lumbar region Category: Medical (3) Tobacco abuse: Code(s): Z72.0 - Tobacco use Category: Medical (4) Anxiety, generalized: Code(s): F41.1 - Generalized anxiety disorder Category: Medical (5) Lipid disorder: Code(s): E78.9 - Disorder of lipoprotein metabolism, unspecified Category: Medical (6) Environmental allergies: Code(s): Z91.09 - Other allergy status, other than to drugs and biological substances Category: Medical (7) Chronic GERD: Code(s): K21.9 - Gastro-esophageal reflux disease without esophagitis Category: Medical Plan History - The patient is a 53-year-old male presenting with chronic low back pain and right leg pain. - The patient reports a history of chronic low back pain, which occasionally worsens but is generally manageable with medication. He last saw a back specialist a long time ago and currently does not see a need to consult one again. - The right leg pain is associated with the back pain chronic - He experiences allergic symptoms, particularly sneezing and tiredness, which worsen during the allergy season. The patient is currently addressing these symptoms with medications such as cetirizine, montelukast, and Flonase. - There is an ongoing prescription for hypertension and hyperlipidemia, which the patient manages with atenolol and atorvastatin respectively. - The patient has a history of vitamin D deficiency and acknowledges the need to continue supplementation . - Nicotine dependence continues, with the patient acknowledging difficulty in quitting smoking. No previous cessation attempts discussed. Medical History: - Chronic Low Back Pain - Right Leg Pain - Allergic Rhinitis - Essential Hypertension - Hyperlipidemia - Vitamin D Deficiency - Nicotine Dependence Medications: - Atenolol 25 mg for hypertension - Atorvastatin for hyperlipidemia - Cetirizine for allergic rhinitis - Gabapentin for chronic low back pain - Montelukast for allergic rhinitis - Tramadol for chronic low back pain - Vitamin D supplementation for deficiency Social History: - The patient is a current smoker and recognizes the need to quit smoking but continues to find it difficult. Diagnostic Results: - Labs (May): CBC is normal, kidney functions are normal, electrolytes are normal, liver enzymes are normal, LDL is 87. Problem List - Chronic Low Back Pain - Right Leg Pain - Allergic Rhinitis - Essential Hypertension - Hyperlipidemia - Vitamin D Deficiency - Nicotine Dependence Patient Instructions - Continue taking all prescribed medications and refill as needed. - Ensure the continuation of vitamin D supplementation. - Be cautious during allergy season to avoid exacerbating symptoms. - Consider smoking cessation strategies to improve overall health. - Book the next appointment prior to running out of medications. Orders: Orders Complete Blood Count Auto Diff 2 Months E78.9 - Disorder of lipoprotein metabolism, unspecified, F41.1 - Generalized anxiety disorder, I10 - Essential (primary) hypertension, K21.9 - Gastro-esophageal reflux disease without esophagitis, M54.16 - Radiculopathy, lumbar region, Z72.0 - Tobacco use, Z91.09 - Other allergy status, other than to drugs and biological substances Comprehensive [place]. Panel Fast 2 Months E78.9 - Disorder of lipoprotein metabolism, unspecified, F41.1 - Generalized anxiety disorder, I10 - Essential (primary) hypertension, K21.9 - Gastro-esophageal reflux disease without esophagitis, M54.16 - Radiculopathy, lumbar region, Z72.0 - Tobacco use, Z91.09 - Other allergy status, other than to drugs and biological substances Lipid Panel 2 Months E78.9 - Disorder of lipoprotein metabolism, unspecified, F41.1 - Generalized anxiety disorder, I10 - Essential (primary) hypertension, K21.9 - Gastro-esophageal reflux disease without esophagitis, M54.16 - Radiculopathy, lumbar region, Z72.0 - Tobacco use, Z91.09 - Other allergy status, other than to drugs and biological substances Vitamin D 25-OH (D2 and D3) 2 Months E78.9 - Disorder of lipoprotein metabolism, unspecified, F41.1 - Generalized anxiety disorder, I10 - Essential (primary) hypertension, K21.9 - Gastro-esophageal reflux disease without esophagitis, M54.16 - Radiculopathy, lumbar region, Z72.0 - Tobacco use, Z91.09 - Other allergy status, other than to drugs and biological substances Medications: Refilled fluticasone propionate 50 mcg/actuation (Flonase Allergy Relief) administer into each nostril 1 spray intranasal BID 16 grams 5RF 30 days cholecalciferol (vitamin D3) 25 mcg PO DAILY 90 caps 1RF 90 days montelukast 10 mg PO DAILY 90 tabs 3RF 90 days tramadol 50 mg PO Q8H 90 tabs 2RF pain 30 days M54.16 - Radiculopathy, lumbar region gabapentin 300 mg PO TID 90 caps 0RF cetirizine 10 mg PO DAILY 90 tabs 3RF 90 days Z91.09 - Other allergy status, other than to drugs and biological substances atorvastatin 20 mg PO DAILY 90 tabs 3RF atenolol 25 mg PO DAILY 90 tabs 0RF
[2024-07-27 09:32] VITALS: BP 128/86; PULSE 70; RESP 18; TEMP 37.1; O2SAT 96; BMI 28.1
== END 2024-07-27 09:47 | disposition home or self-care (01) ==
LOC: HO.HMCC 09:28
PROVIDERS: PCP Internal Medicine; Visit Provider Internal Medicine
DX: I10 Essential (primary) hypertension (principal); M54.16 Radiculopathy, lumbar region; Z72.0 Tobacco use; F41.1 Generalized anxiety disorder; E78.9 Disorder of lipoprotein metabolism, unspecified; Z91.09 Other allergy status, other than to drugs and biological substances; K21.9 Gastro-esophageal reflux disease without esophagitis

== ENCOUNTER → 2024-07-27 09:27 | Outpatient (BNVA) | payer OTHER, SELFPAY | PROVIDERS: PCP Internal Medicine; Visit Provider Internal Medicine | DX: M54.16 Radiculopathy, lumbar region (principal); M79.604 Pain in right leg; G89.29 Other chronic pain; I10 Essential (primary) hypertension; E78.5 Hyperlipidemia, unspecified; F17.210 Nicotine dependence, cigarettes, uncomplicated; F41.1 Generalized anxiety disorder; E78.9 Disorder of lipoprotein metabolism, unspecified; K21.9 Gastro-esophageal reflux disease without esophagitis; Z91.09 Other allergy status, other than to drugs and biological substances; Z79.899 Other long term (current) drug therapy | CPT/HCPCS: 96127; 99212 ==

== ENCOUNTER 2024-10-26 08:57 | Outpatient (AMB) | payer OTHER, SELFPAY ==
[2024-10-26 09:00] VITALS: BP 130/82; PULSE 75; O2SAT 95; BMI 27.3
--- NOTE | 2024-10-26 09:00 | A.OFFPC_ITS ---
Vital Signs 10/26/24 09:00 Height 6 ft 2 in Weight 213 lb BMI 27.3 BP 130/82 Blood Pressure Location Lt brachial Position Sitting Pulse 75 Pulse Source Pulse Oximeter Pulse Oximetry (%) 95 Oxygen Delivery Method Room Air Intake Visit Reasons: Annual Allergies aspirin Allergy (Unknown, Verified 10/26/24 09:00) facial swelling ibuprofen Allergy (Unknown, Verified 10/26/24 09:00) Unknown NSAIDS (Non-Steroidal Anti-Inflamma Allergy (Unknown, Verified 10/26/24 09:00) Unknown penicillin V Allergy (Unknown, Verified 10/26/24 09:00) facial swelling Medication List - Last Reconciled 10/26/24 by Leeanna Joe MD atenolol 25 mg PO DAILY atorvastatin 20 mg PO DAILY [Blood pressure monitor As directed] cetirizine 10 mg PO DAILY 90 days cholecalciferol (vitamin D3) 25 mcg PO DAILY 90 days fluticasone propionate 50 mcg/actuation (Flonase Allergy Relief) 1 spray intranasal BID 30 days gabapentin 300 mg PO TID montelukast 10 mg PO DAILY 90 days tramadol 50 mg PO Q8H 30 days Tobacco use date assessed: 07/27/24 Dental Screening Dental Screen Date: 05/27/24 HPI Annual HPI Details History of Present Illness The patient is a 54-year-old male presenting for a physical examination and medication refill. Hypertension: - Diagnosed issue managed currently with atenolol. - Recent blood pressure reading is 130/8 2 mmHg. - No recent significant exacerbations in dicated. Hyperlipidemia: - Managed with atorvastatin. No side effects. Allergic Rhinitis: - Managed with cetirizine and Flonase. - stable. Osteoarthritis: - Reports knee pain associated with oste oarthritis. - Symptoms managed currently with tramad ol. - Discussed topical heat application and massage for symptom relief. - No requests for additional interventio ns except inquiry about arthritis cream. Chronic lower back pain managed with tramadol and gabapentin Smoking: - Acknowledges ongoing smoking, though t he amount is unspecified. - smoking cessation advice was provided. Medical History: - Hypertension - Hyperlipidemia - Allergic Rhinitis - Osteoarthritis Social History: - Smoking history: Continues to smoke. - Dietary habits: Consumed coffee with s ugar and milk for breakfast. Health Maintenance - Recommendation for blood tests, previo usly ordered in July. - Discussion about colorectal cancer scr eening with colonoscopy or fecal occult blood test kit suggested. Patient declined colonoscopy - Encouragement to perform fecal test pr omptly upon receiving the kit. - Smoking cessation advice provided. Medications - Atenolol for hypertension - Atorvastatin for hyperlipidemia - Cetirizine for allergic rhinitis - Vitamin D supplement - Flonase for allergic rhinitis - Gabapentin for nerve pain management - Montelukastine (likely montelukast) fo r allergy/asthma management - Tramadol for pain management in osteoa rthritis Diagnostic results - Labs: Awaiting pending blood test orde red initially for July. Patient forgot to do them Patient Instructions - Schedule lab tests for tomorrow as pre viously ordered. - Expect colorectal cancer screening kit by mail; complete promptly. - Refills for medications will be ready at pharmacy. - Ensure next appointment is scheduled t o correspond with medication refills. - Explore smoking cessation options or r eduction strategies. Follow-up 3 months Review of Systems - General: No fever no chills - Neurological: No headaches no dizzin ess - Ear nose throat: No sore throat no hearing difficulty no ear pain - Cardiovascular: No syncope, no chest pain, no palpitations - Gastrointestinal: No nausea vomiting or diarrhea - Endocrine: No polyuria polydipsia no heat intolerance - Genitourinary: No dysuria - Skin: No new complaints Physical Exam General: Cooperative, healthy appearing, comfortable, no acute distress Orientation: Patient oriented x3 Head: Normal to inspection Ears: Within normal limit visually Nose: Normal external nose present Face and sinus: Normal facial exam Eyes: Appearance normal, extraocular movement intact pupils reactive Neck: Normal visual inspection and supple Respiratory: Normal respiratory effort and able to speak in complete sentences. Clear to auscultation, no stridor Cardiovascular: S1 and S2 RRR, Blood pressure is 130/82 GI: Normal to inspection. Soft to palpation and nontender Skin: turgor normal, no acute findings Neuro: Patient oriented x3, motor sensory intact, balance intact, tandem pass Extremities: Normal to inspection, full range of motion [facility] Medical History Left groin pain Environmental allergies Lipid disorder Anxiety, generalized Tobacco abuse Lumbar radiculitis Surgical History History of tonsillectomy Family History Father No problems noted. Mother HTN (hypertension) Brother No problems noted. Brother No problems noted. Son No problems noted. Son No problems noted. Daughter No problems noted. Daughter No problems noted. Sister No problems noted. Sister No problems noted. Sister No problems noted. Sister No problems noted. 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 Cognitive needs: No Hearing needs: No Vision needs: No Questionnaire Thrive Questionnaire Date Thrive assessed: 10/26/24 I am a: Patient What is your living situation today?: I have a steady place to live Within the past 12 months, did the food you bought not last and you didn't have the money to get more?: Often true Within the past 12 months, did you worry whether your food would run out before you got money to buy more?: Often true Do you have trouble paying for medicines?: No Do you have trouble getting transportation to medical appointments?: No Do you have trouble paying your heating and electricity bill?: No Do you have trouble taking care of your child, family member or friend?: No Do you have trouble with day-to-day activities such as bathing, preparing meals, shopping, managing finances, etc.?: No Are you currently unemployed and looking for a job?: No Are you interested in more education?: Yes Please select the resources that you would like help with: None Currently or been in a relationship where the following occur: I choose not to answer THRIVE Score: 2 MANOJ-7 AMB Questionnaire MANOJ-7 Date MANOJ - 7 assessed: 05/27/24 Source: Developed by Drs. Rafal Mcknight, Astrid Jimenez, Jensen Zamora and colleagues, with an educational urvashi from [employer]. Physical exam (Primary Care) Vital Signs: Last Vital Signs Pulse 75 10/26/24 09:00 BP 130/82 10/26/24 09:00 Pulse Ox 95 10/26/24 09:00 Oxygen Delivery Method Room Air 10/26/24 09:00 BMI result Body Mass Index 27.3 Tobacco/Smoking Status: Tobacco use Status Tobacco use date assessed 07/27/24 10/26/24 09:03 Patient Tobacco Use Status Current everyday Tobacco 10/26/24 09:03 Tobacco use type Cigarette 10/26/24 09:03 e-Cigarette/Vaping Use Never Used 10/26/24 09:03 Are you ready to quit: No Tobacco cessation counseling provided: Yes Relapse Prevention: discussed the importance of a supportive environment and discussed dietary, exercise and/or lifestyle changes CPT code: 39974 - 4-10 Minutes Thrive Assessment: Date of Thrive Assessment Date Thrive assessed 10/26/24 10/26/24 09:03 Currently or been in a relationship where the following occur: I choose not to answer Coding Level of Care Code Est Pt Level 4 (94389) Est Pt Prev Care 40-64y(54735) Diagnoses Encounter for general adult medical examination with abnormal findings Z00.01 Hypertension, essential I10 Lipid disorder E78.9 Environmental allergies Z91.09 Chronic GERD K21.9 Lumbar radiculitis M54.16 Tobacco abuse Z72.0 Chronic pain of both knees M25.561; M25.562; G89.29 Chronicity: chronic 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 Additional Codes Vital Signs *Quality* - CPT code: 73238 - 4-10 Minutes ([id number]) Assessment & Plan Assessment & Plan (1) Encounter for general adult medical examination with abnormal findings: Code(s): Z00.01 - Encounter for general adult medical examination with abnormal findings Category: Medical (2) Hypertension, essential: Code(s): I10 - Essential (primary) hypertension Category: Medical (3) Lipid disorder: Code(s): E78.9 - Disorder of lipoprotein metabolism, unspecified Category: Medical (4) Environmental allergies: Code(s): Z91.09 - Other allergy status, other than to drugs and biological substances Category: Medical (5) Chronic GERD: Code(s): K21.9 - Gastro-esophageal reflux disease without esophagitis Category: Medical (6) Lumbar radiculitis: Code(s): M54.16 - Radiculopathy, lumbar region Category: Medical (7) Tobacco abuse: Code(s): Z72.0 - Tobacco use Category: Medical (8) Bilateral knee pain: Code(s): M25.561 - Pain in right knee; M25.562 - Pain in left knee Category: Medical Qualifiers: Chronicity: chronic Qualified Code(s): M25.561 - Pain in right knee; M25.562 - Pain in left knee; G89.29 - Other chronic pain (9) Moderate tramadol dependence: Code(s): F11.20 - Opioid dependence, uncomplicated Category: Medical Plan History of Present Illness The patient is a 54-year-old male presenting for a physical examination and medication refill. Hypertension: - Diagnosed issue managed currently with atenolol. - Recent blood pressure reading is 130/82 mmHg. - No recent significant exacerbations indicated. Hyperlipidemia: - Managed with atorvastatin. No side effects. Allergic Rhinitis: - Managed with cetirizine and Flonase. - stable. Osteoarthritis: - Reports knee pain associated with osteoarthritis. - Symptoms managed currently with tramadol. - Discussed topical heat application and massage for symptom relief. - No requests for additional interventions except inquiry about arthritis cream. Chronic lower back pain managed with tramadol and gabapentin Smoking: - Acknowledges ongoing smoking, though the amount is unspecified. - smoking cessation advice was provided. Medical History: - Hypertension - Hyperlipidemia - Allergic Rhinitis - Osteoarthritis Social History: - Smoking history: Continues to smoke. - Dietary habits: Consumed coffee with sugar and milk for breakfast. Health Maintenance - Recommendation for blood tests, previously ordered in July. - Discussion about colorectal cancer screening with colonoscopy or fecal occult blood test kit suggested. Patient declined colonoscopy - Encouragement to perform fecal test promptly upon receiving the kit. - Smoking cessation advice provided. Medications - Atenolol for hypertension - Atorvastatin for hyperlipidemia - Cetirizine for allergic rhinitis - Vitamin D supplement - Flonase for allergic rhinitis - Gabapentin for nerve pain management - Montelukastine (likely montelukast) for allergy/asthma management - Tramadol for pain management in osteoarthritis Diagnostic results - Labs: Awaiting pending blood test ordered initially for July. Patient forgot to do them Patient Instructions - Schedule lab tests for tomorrow as previously ordered. - Expect colorectal cancer screening kit by mail; complete promptly. - Refills for medications will be ready at pharmacy. - Ensure next appointment is scheduled to correspond with medication refills. - Explore smoking cessation options or reduction strategies. Follow-up 3 months Orders: Referrals Cologuard Test Z12.11 - Encounter for screening for malignant neoplasm of colon, Z12.12 - Encounter for screening for malignant neoplasm of rectum Medications: Refilled atorvastatin 20 mg PO DAILY 90 tabs 3RF cholecalciferol (vitamin D3) 25 mcg PO DAILY 90 caps 1RF 90 days fluticasone propionate 50 mcg/actuation (Flonase Allergy Relief) administer into each nostril 1 spray intranasal BID 16 grams 5RF 30 days gabapentin 300 mg PO TID 90 caps 0RF atenolol 25 mg PO DAILY 90 tabs 0RF cetirizine 10 mg PO DAILY 90 tabs 3RF 90 days Z91.09 - Other allergy status, other than to drugs and biological substances montelukast 10 mg PO DAILY 90 tabs 3RF 90 days tramadol 50 mg PO Q8H 90 tabs 2RF pain 30 days M54.16 - Radiculopathy, lumbar region
== END 2024-10-26 09:26 | disposition home or self-care (01) ==
LOC: HO.HMCC 08:58
PROVIDERS: PCP Internal Medicine; Visit Provider Internal Medicine
DX: Z00.01 Encounter for general adult medical examination with abnormal findings (principal); I10 Essential (primary) hypertension; E78.9 Disorder of lipoprotein metabolism, unspecified; F11.20 Opioid dependence, uncomplicated; Z91.09 Other allergy status, other than to drugs and biological substances; K21.9 Gastro-esophageal reflux disease without esophagitis; M54.16 Radiculopathy, lumbar region; Z72.0 Tobacco use; M25.561 Pain in right knee; M25.562 Pain in left knee; G89.29 Other chronic pain

== ENCOUNTER → 2024-10-26 08:57 | Outpatient (BNVA) | payer OTHER, SELFPAY | PROVIDERS: PCP Internal Medicine; Visit Provider Internal Medicine | DX: Z00.01 Encounter for general adult medical examination with abnormal findings (principal); I10 Essential (primary) hypertension; E78.5 Hyperlipidemia, unspecified; J30.9 Allergic rhinitis, unspecified; M54.50 Low back pain, unspecified; E78.9 Disorder of lipoprotein metabolism, unspecified; K21.9 Gastro-esophageal reflux disease without esophagitis; M54.16 Radiculopathy, lumbar region; M25.561 Pain in right knee; M25.562 Pain in left knee; F17.210 Nicotine dependence, cigarettes, uncomplicated; F11.20 Opioid dependence, uncomplicated; Z71.6 Tobacco abuse counseling; Z91.09 Other allergy status, other than to drugs and biological substances | CPT/HCPCS: 99396 ==

== ENCOUNTER 2024-10-27 09:36 | Outpatient (REF) | payer OTHER, SELFPAY ==
[2024-10-27 13:21] LABS: MANUAL DIFF FLAG NO
[2024-10-27 13:32] LABS: Hematocrit 44.1 % (42.0-52.0); Hemoglobin 15.1 g/dl (14.0-18.0); Imm Gran Abs Auto 0.03 X10*3/uL (0.00-0.03); Imm Gran Pct Auto 0.3 % (0.0-0.4); Lymphocytes Absolute Auto 3.9 X10*3/uL (1.2-4.9); Mean Corpuscular HGB Conc 34.2 g/dl (31.0-36.0); Mean Corpuscular Hemoglobin 30.6 pg (27.0-33.0); Mean Corpuscular Volume 89.3 fL (80.0-98.0); NRBC Abs Auto 0.000 X10*3/uL (0.0-0.012); NRBC Pct Auto 0.0 /100WBC (0.0-0.2); Platelet Count 282 X10*3/uL (160-400); Red Blood Count 4.94 X10*6/uL (4.60-5.80); White Blood Count 9.4 X10*3/uL (4.8-10.8)
[2024-10-27 13:41] LABS: Alanine Aminotransferase 31 U/L (0-40); Albumin Level 4.6 g/dL (3.5-5.0); Alkaline Phosphatase 108 U/L (39-117); Anion Gap 10 (12-20); Aspartate Amino Transferase 28 U/L (5-37); Blood Urea Nitrogen 17 mg/dL (9-16); Calcium 9.5 mg/dL (8.4-10.2); Carbon Dioxide 27 mmol/L (22-29); Chloride 109 mmol/L (96-108); Cholesterol 138 mg/dL (<200); Estimated Glomerular Filt Rate > 60; HDL Cholesterol 28 mg/dL (>40); Potassium 4.1 mmol/L (3.3-5.1); Sodium 142 mmol/L (135-145); Total Protein 6.9 g/dL (6.5-8.0); Triglycerides 172 mg/dL (<150)
[2024-10-31 13:59] LABS: Vitamin D 25-OH, D2 <4 ng/mL; Vitamin D 25-OH, D3 29 ng/mL; Vitamin D 25-OH, Total 29 ng/mL (30-100)
== END 2024-10-27 09:37 | disposition home or self-care (01) ==
LOC: HO.HMGCLDS 09:36
PROVIDERS: PCP Internal Medicine; Visit Provider Internal Medicine
DX: K21.9 Gastro-esophageal reflux disease without esophagitis (principal); E78.9 Disorder of lipoprotein metabolism, unspecified; M54.16 Radiculopathy, lumbar region; F41.1 Generalized anxiety disorder; I10 Essential (primary) hypertension; Z72.0 Tobacco use; Z91.09 Other allergy status, other than to drugs and biological substances
CPT/HCPCS: 36415; 80053; 80061; 82306; 85025

== ENCOUNTER 2025-01-31 08:16 | Outpatient (AMB) | payer OTHER, SELFPAY ==
--- NOTE | 2025-01-31 08:49 | A.OFFPC_ITS ---
Intake Visit Reasons: office visit Allergies aspirin Allergy (Unknown, Verified 10/26/24 09:00) facial swelling ibuprofen Allergy (Unknown, Verified 10/26/24 09:00) Unknown NSAIDS (Non-Steroidal Anti-Inflamma Allergy (Unknown, Verified 10/26/24 09:00) Unknown penicillin V Allergy (Unknown, Verified 10/26/24 09:00) facial swelling Medication List - Last Reconciled 01/31/25 by Leeanna Joe MD atenolol 25 mg PO DAILY atorvastatin 20 mg PO DAILY [Blood pressure monitor As directed] cetirizine 10 mg PO DAILY 90 days cholecalciferol (vitamin D3) 25 mcg PO DAILY 90 days fluticasone propionate 50 mcg/actuation (Flonase Allergy Relief) 1 spray intranasal BID 30 days gabapentin 300 mg PO TID montelukast 10 mg PO DAILY 90 days tramadol 50 mg PO Q8H 30 days Tobacco use date assessed: 07/27/24 Dental Screening Dental Screen Date: 05/27/24 HPI office visit HPI Details The patient is a 54-year-old male presenting for medication refill. has been having sore throat and headache since last night how ever symptoms are not that bad he tells me has not had flu vaccine if symtoms got worse patient will come to our walk in clinic tomorrow to be tested Hypertension: - Diagnosed issue managed currently with atenolol. - Bp stable Hyperlipidemia: - Managed with atorvastatin. No side effects. Allergic Rhinitis: - Managed with cetirizine and Flonase. a nd singular - stable. Osteoarthritis: and Back pain - Symptoms managed currently with tramad ol. Chronic lower back pain managed with tramadol and gabapentin Medications - Atenolol for hypertension - Atorvastatin for hyperlipidemia - Cetirizine for allergic rhinitis - Vitamin D supplement - Flonase for allergic rhinitis - Gabapentin for nerve pain management - Montelukastine (likely montelukast) fo r allergy/asthma management - Tramadol for pain management in osteoa rthritis Patient Instructions - come to walk in clinic tomorrow if sym toms worsen. mean while hydrate and rest - Refills for medications will be ready at pharmacy. Follow-up 3 months Review of Systems - Neurological: No headaches no dizzin ess - Ear nose throat: no hearing difficulty no ear pain - Cardiovascular: No syncope, no chest pain, no palpitations - Gastrointestinal: No nausea vomiting or diarrhea - Endocrine: No polyuria polydipsia no heat intolerance - Genitourinary: No dysuria - Skin: No new complaints [facility] Medical History Left groin pain Environmental allergies Lipid disorder Anxiety, generalized Tobacco abuse Lumbar radiculitis Surgical History History of tonsillectomy Family History Father No problems noted. Mother HTN (hypertension) Brother No problems noted. Brother No problems noted. Son No problems noted. Son No problems noted. Daughter No problems noted. Daughter No problems noted. Sister No problems noted. Sister No problems noted. Sister No problems noted. Sister No problems noted. 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 Rafal Mcknight, Astrid Jimenez, Jensen Zamora and colleagues, with an educational urvashi from [employer]. Physical exam (Primary Care) Tobacco/Smoking Status: Tobacco use Status Tobacco use date assessed 07/27/24 01/31/25 08:54 Patient Tobacco Use Status Current everyday Tobacco 01/31/25 08:54 Tobacco use type Cigarette 01/31/25 08:54 e-Cigarette/Vaping Use Never Used 01/31/25 08:54 Thrive Assessment: Date of Thrive Assessment Date Thrive assessed 10/26/24 01/31/25 08:54 Telehealth Telehealth Telehealth Platform: [facility] Location of provider rendering services: practice address Location of patient: address on file Patient Identification confirmed using: Name, : Yes Telehealth method: video Patient verbally consented to treatment: Yes Patient verbally consented to billing insurance company: Yes Patient informed of any privacy concerns related to visit: Yes Minutes spent on Phone/Video with Pt.: 13 Coding Level of Care Code Tele Est Pt Level 3 (27547) Diagnoses Viral illness B34.9 Hypertension, essential I10 Lipid disorder E78.9 Environmental allergies Z91.09 Lumbar radiculitis M54.16 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 Assessment & Plan Assessment & Plan (1) Viral illness: Code(s): B34.9 - Viral infection, unspecified Category: Medical (2) Hypertension, essential: Code(s): I10 - Essential (primary) hypertension Category: Medical (3) Lipid disorder: Code(s): E78.9 - Disorder of lipoprotein metabolism, unspecified Category: Medical (4) Environmental allergies: Code(s): Z91.09 - Other allergy status, other than to drugs and biological substances Category: Medical (5) Lumbar radiculitis: Code(s): M54.16 - Radiculopathy, lumbar region Category: Medical (6) Moderate tramadol dependence: Code(s): F11.20 - Opioid dependence, uncomplicated Category: Medical Plan has been having sore throat and headache since last night how ever symptoms are not that bad he tells me has not had flu vaccine if symtoms got worse patient will come to our walk in clinic tomorrow to be torsten burroughs Hypertension: - Diagnosed issue managed currently with atenolol. - Bp stable Hyperlipidemia: - Managed with atorvastatin. No side effects. Allergic Rhinitis: - Managed with cetirizine and Flonase. and singular - stable. Osteoarthritis: and Back pain - Symptoms managed currently with tramadol. Chronic lower back pain managed with tramadol and gabapentin Medications - Atenolol for hypertension - Atorvastatin for hyperlipidemia - Cetirizine for allergic rhinitis - Vitamin D supplement - Flonase for allergic rhinitis - Gabapentin for nerve pain management - Montelukastine (likely montelukast) for allergy/asthma management - Tramadol for pain management in osteoarthritis Patient Instructions - come to walk in clinic tomorrow if symtoms worsen. mean while hydrate and rest - Refills for medications will be ready at pharmacy. Follow-up 3 months Medications: Refilled montelukast 10 mg PO DAILY 90 tabs 3RF 90 days tramadol 50 mg PO Q8H 90 tabs 2RF pain 30 days M54.16 - Radiculopathy, lumbar region
== END 2025-01-31 10:05 | disposition home or self-care (01) ==
LOC: HO.HMCC 08:16
PROVIDERS: PCP Internal Medicine; Visit Provider Internal Medicine
DX: I10 Essential (primary) hypertension (principal); B34.9 Viral infection, unspecified; F11.20 Opioid dependence, uncomplicated; E78.9 Disorder of lipoprotein metabolism, unspecified; Z91.09 Other allergy status, other than to drugs and biological substances; M54.16 Radiculopathy, lumbar region